=== PATIENT | male | born 1960 | race Caucasian/White ===

== ENCOUNTER → 2017-07-21 10:01 | Outpatient (CLI) | payer MEDICAID, SELFPAY ==
[2017-07-21 13:29] LABS: Basophils % 0.2 % (0.1-2.0); Eosinophils # 0.1 K/mm3 (0.0-0.4); Eosinophils % 0.5 % (0.1-12.0); Hematocrit 45.8 % (42.0-52.0); Hemoglobin 14.7 g/dL (14.1-18.0); Lymphocytes # 1.3 K/mm3 (0.7-4.5); Lymphocytes % 11.7 K/mm3 (10-50); Mean Corpuscular HGB Conc 32.2 g/dL (31.8-35.4); Mean Corpuscular Hemoglobin 32.6 pg (27.0-31.2); Mean Corpuscular Volume 101.2 fl (80-94); Mean Platelet Volume 8.1 fl (7.4-10.4); Monocytes # 0.9 K/mm3 (0.1-1.0); Monocytes % 8.5 % (1.7-9.3); Neutrophils # 8.6 K/mm3 (1.8-7.8); Neutrophils % 79.1 % (37.0-80.0); Platelet Count 170 K/mm3 (142-424); Red Blood Count 4.52 M/mm3 (4.60-6.20); Red Cell Distribution Width 12.8 % (11.5-17.5); White Blood Count 10.9 K/mm3 (4.8-10.8)
[2017-07-21 13:34] LABS: Anion Gap 14.9 mEq/L (5-15); Blood Urea Nitrogen 22 mg/dL (7-18); Carbon Dioxide 28 mmol/L (21.0-32.0); Chloride 97 mmol/L (98-107); Creatinine,Serum 0.88 mg/dL (0.70-1.30); Estimated Glomerular Filt Rate 90 ml/min (>60); GFR (African American) 108 ML/MIN (>60); Glucose 155 mg/dL (74-106); Potassium 4.9 mmoL/L (3.5-5.1); Sodium 135 mmol/L (136-145)
== END ==
PROVIDERS: Visit Provider Emergency Medicine
DX: E11.9 Type 2 diabetes mellitus without complications (principal); N28.9 Disorder of kidney and ureter, unspecified
CPT/HCPCS: 80048; 85025

== ENCOUNTER → 2017-08-21 06:38 | Outpatient (CLI) | payer MEDICAID, SELFPAY ==
--- NOTE | 2017-08-21 06:41 | CA_ITS ---
PROCEDURE: 2-D M-mode and color Doppler study INDICATIONS FOR THE TEST: Chest pain+ COPD Heart Murmur Tobacco Smoking Palpitations Fatigue Syncope Edema Hypertension+Diabetes Mellitus+ Rheumatic Fever SOB CAGE Obesity Hyperlipidemia+ Family History HD Additional History CAD PATIENT INFORMATION HEIGHT: 68 WEIGHT:191 GENDER: Male B/P:145/78 2-D/M-MODE INTERPRETATION: 2-D MEASUREMENTS OBSERVED VALUES IN CMS Right Ventricular Dimension (RVDd) 2.0 Interventricular Septum (Thickness)(IVsd) 1.1 Left Ventricular Internal Dimensions(LVIDd) 4.9 Left Ventricular Posterior Wall (Thickness)(LVPWd) 1.0 Aortic Root 2.7 Aortic Cusp Separation 2.2 Left Atrial Dimensions (LAD) 3.4 2D 1. Left atrium is mildly enlarged, left ventricle is normal size, mild concentric left ventricular hypertrophy, visually estimated ejection fraction 55% with no obvious regional wall motion abnormality. 2. The right atrium and right ventricle are mildly enlarged with normal contractility. 3. The aortic valve is minimally thickened and fibrosed. 4. The mitral and tricuspid valvular grossly normal. 5. The pulmonic valve is poorly visualized. 6. No significant pericardial effusion noted. DOPPLER INTERROGATION: Doppler interrogation of the aortic, mitral and tricuspid valvular presence of mild mitral and tricuspid regurgitation, tricuspid and jet velocity insufficient for calculation of the right ventricular systolic pressure, diastolic parameters are inconclusive. CONCLUSION: 1. Mild biatrial enlargement, normal left ventricular size, mild concentric left ventricular hypertrophy, visually estimated ejection fraction 55% with no obvious regional wall motion abnormality, diastolic parameters are inconclusive. 2. Mildly enlarged right ventricle with normal contractility. 3. Mild mitral and tricuspid regurgitation 4. No significant pericardial effusion noted.
--- NOTE | 2017-08-21 06:41 | NM_ITS ---
History and Indications: Hypertension, diabetes chest pain Procedure: Patient received a 0.4 mg of Lexiscan, resting heart rate was 64 bpm, resting blood pressure 130/78, with Lexiscan maximum heart rate achieved was 105 bpm is less than 85% of the maximum predicted heart rate and a blood pressure was 128/94. With Lexiscan patient complained of shortness of breath. Electrocardiogram: Resting electrocardiogram showed sinus rhythm, with Lexiscan there is less than 1.[address] segment depression noted from the baseline EKG. The EKG portion of the Lexiscan Myoview is nondiagnostic. Cardiac stress and resting SPECT images: Cardiac stress and rest SPECT images were obtained using technetium 99 Myoview 30.0 mCi at stress and 10 mci at rest, gated SPECT further analysis of segmental wall motion and calculation of the ejection fraction also done. Cardiac stress and rest SPECT images show uniform myocardial activity without any segmental perfusion abnormality, computer derived ejection fraction is 56% with no obvious regional wall motion abnormality, right ventricle is normal size and contractility. Conclusion: 1. The EKG portion of the Lexiscan Myoview is nondiagnostic. 2. No obvious scintigraphic evidence of reversible ischemia seen, computer derived ejection fraction is 56% with no obvious regional wall motion abnormality, right ventricle is normal size and contractility. 3. Normal Lexiscan Myoview study.
--- NOTE | 2017-08-21 07:19 | HMH.ITSHM ---
METFORMIN LISINOPRIL ASA PRAVASTATIN GABAPENTIN ACETAMINOPHEN MULTIVITAMIN ANTACID
== END ==
PROVIDERS: Family Provider Emergency Medicine; PCP Emergency Medicine; Visit Provider Internal Medicine
DX: R07.9 Chest pain, unspecified (principal); I25.10 Atherosclerotic heart disease of native coronary artery without angina pectoris; E78.5 Hyperlipidemia, unspecified; E11.9 Type 2 diabetes mellitus without complications; I10 Essential (primary) hypertension
CPT/HCPCS: 78452; 93017; 93306; A9502; J2785

== ENCOUNTER → 2017-08-29 16:01 | Outpatient (REF) | payer MEDICAID, SELFPAY ==
[2017-08-29 18:11] LABS: Anion Gap 13.2 mEq/L (5-15); Blood Urea Nitrogen 14 mg/dL (7-18); Calcium 9.2 mg/dL (8.5-10.1); Carbon Dioxide 27 mmol/L (21.0-32.0); Chloride 103 mmol/L (98-107); Creatinine,Serum 0.78 mg/dL (0.70-1.30); Estimated Glomerular Filt Rate 103 ml/min (>60); GFR (African American) 125 ML/MIN (>60); Glucose 134 mg/dL (74-106); Potassium 4.2 mmoL/L (3.5-5.1); Sodium 139 mmol/L (136-145)
== END ==
LOC: LAB 16:01
PROVIDERS: Visit Provider Emergency Medicine
DX: I25.10 Atherosclerotic heart disease of native coronary artery without angina pectoris (principal)
CPT/HCPCS: 80048

== ENCOUNTER → 2018-02-26 13:20 | Outpatient (CLI) | payer MEDICAID, SELFPAY ==
[2018-02-26 13:39] LABS: Basophils % 0.5 % (0.1-2.0); Eosinophils # 0.2 K/mm3 (0.0-0.4); Eosinophils % 4.2 % (0.1-12.0); Hematocrit 49.8 % (42.0-52.0); Hemoglobin 16.7 g/dL (14.1-18.0); Lymphocytes # 1.4 K/mm3 (0.7-4.5); Lymphocytes % 27.3 % (10-50); Mean Corpuscular HGB Conc 33.5 g/dL (31.8-35.4); Mean Corpuscular Hemoglobin 33.8 pg (27.0-31.2); Mean Corpuscular Volume 100.8 fl (80-94); Mean Platelet Volume 8.1 fl (7.4-10.4); Monocytes # 0.4 K/mm3 (0.1-1.0); Neutrophils # 3.2 K/mm3 (1.8-7.8); Platelet Count 174 K/mm3 (142-424); Red Blood Count 4.94 M/mm3 (4.60-6.20); Red Cell Distribution Width 12.2 % (11.5-17.5); White Blood Count 5.3 K/mm3 (4.8-10.8)
[2018-02-26 13:59] LABS: Alanine Aminotransferase 43 U/L (12-78); Albumin Level 4.3 gm/dL (3.4-5.0); Albumin/Globulin Ratio 1.3 (1.1-1.8); Alkaline Phosphatase 76 U/L (46-116); Anion Gap 17.5 mEq/L (5-15); Aspartate Amino Transferase 27 U/L (15-37); Blood Urea Nitrogen 16 mg/dL (7-18); Calcium 9.3 mg/dL (8.5-10.1); Carbon Dioxide 25 mmol/L (21.0-32.0); Chloride 101 mmol/L (98-107); Chol/HDL Ratio 3.8 (1-3.5); Cholesterol 211 mg/dL (140-200); Estimated Glomerular Filt Rate 87 ml/min (>60); GFR (African American) 105 ML/MIN (>60); Globulin 3.3 gm/dl (1.3-3.2); Glucose 152 mg/dL (74-106); HDL Cholesterol 55 mg/dL (27-67); LDL Cholesterol 130 mg/dL (0-130); Potassium 4.5 mmoL/L (3.5-5.1); Sodium 139 mmol/L (136-145); Thyroid Stimulating Hormone 1.07 uIU/ml (0.358-3.740); Total Protein,Serum 7.6 gm/dL (6.4-8.2); Triglycerides 132 mg/dL (30-200); VLDL Cholesterol 26 mg/dL (0-40)
[2018-02-26 14:00] LABS: Hemoglobin A1C 5.8 % (0.0-7.0)
[2018-02-27 14:00] LABS: PSA, Free 0.12 ng/mL; Prostate Specific Ag 0.9 ng/mL (0.0-4.0)
== END ==
PROVIDERS: Visit Provider Emergency Medicine
DX: E11.9 Type 2 diabetes mellitus without complications (principal)
CPT/HCPCS: 80053; 80061; 83036; 84153; 84154; 84439; 84443; 85025

== ENCOUNTER → 2018-03-06 14:15 | Outpatient (CLI) | payer MEDICAID, SELFPAY ==
[2018-03-09 17:07] LABS: Folate >20.0 ng/mL (>3.0); Vitamin B12 594 pg/mL (232-1245)
== END ==
PROVIDERS: Visit Provider Physician Assistant
DX: D75.89 Other specified diseases of blood and blood-forming organs (principal)
CPT/HCPCS: 36415; 82607; 82746

== ENCOUNTER → 2018-08-21 13:43 | Outpatient (CLI) | payer MEDICAID, SELFPAY ==
[2018-08-21 14:23] LABS: Alanine Aminotransferase 40 U/L (12-78); Albumin Level 4.1 gm/dL (3.4-5.0); Albumin/Globulin Ratio 1.5 (1.1-1.8); Alkaline Phosphatase 69 U/L (46-116); Anion Gap 12.7 mEq/L (5-15); Aspartate Amino Transferase 23 U/L (15-37); Bilirubin,Total 0.9 mg/dL (0.2-1.0); Blood Urea Nitrogen 14 mg/dL (7-18); Calcium 9.1 mg/dL (8.5-10.1); Carbon Dioxide 27 mmol/L (21.0-32.0); Chloride 104 mmol/L (98-107); Chol/HDL Ratio 2.9 (1-3.5); Cholesterol 144 mg/dL (140-200); Estimated Glomerular Filt Rate 100 ml/min (>60); GFR (African American) 121 ML/MIN (>60); Globulin 2.8 gm/dl (1.3-3.2); Glucose 127 mg/dL (74-106); HDL Cholesterol 49 mg/dL (27-67); LDL Cholesterol 86 mg/dL (0-130); Potassium 4.7 mmoL/L (3.5-5.1); Sodium 139 mmol/L (136-145); T4 (Thyroxine) 8.3 ug/dl (4.7-13.3); Thyroid Stimulating Hormone 0.98 uIU/ml (0.358-3.740); Total Protein,Serum 6.9 gm/dL (6.4-8.2); Triglycerides 44 mg/dL (30-200); VLDL Cholesterol 9 mg/dL (0-40)
[2018-08-21 14:42] LABS: Basophils % 0.4 % (0.1-2.0); Eosinophils # 0.2 K/mm3 (0.0-0.4); Eosinophils % 2.9 % (0.1-12.0); Hematocrit 48.9 % (42.0-52.0); Hemoglobin 15.8 g/dL (14.1-18.0); Lymphocytes # 1.8 K/mm3 (0.7-4.5); Lymphocytes % 32.6 % (10-50); Mean Corpuscular HGB Conc 32.3 g/dL (31.8-35.4); Mean Corpuscular Hemoglobin 33.2 pg (27.0-31.2); Mean Corpuscular Volume 102.9 fl (80-94); Mean Platelet Volume 8.7 fl (7.4-10.4); Monocytes # 0.3 K/mm3 (0.1-1.0); Monocytes % 5.8 % (1.7-9.3); Neutrophils # 3.3 K/mm3 (1.8-7.8); Neutrophils % 58.2 % (37.0-80.0); Platelet Count 183 K/mm3 (142-424); Red Blood Count 4.75 M/mm3 (4.60-6.20); Red Cell Distribution Width 12.6 % (11.5-17.5); White Blood Count 5.6 K/mm3 (4.8-10.8)
[2018-08-23 09:11] LABS: Creatinine, Urine 160.1 mg/dL (Not Estab.); Microalbumin, Urine 13.3 ug/mL (Not Estab.)
[2018-08-24 07:11] LABS: Vitamin D 25 Hydroxy 30.6 ng/mL (30.0-100.0)
== END ==
PROVIDERS: Visit Provider Emergency Medicine
DX: E11.9 Type 2 diabetes mellitus without complications (principal); R71.8 Other abnormality of red blood cells; E78.5 Hyperlipidemia, unspecified; Z79.84 Long term (current) use of oral hypoglycemic drugs
CPT/HCPCS: 80053; 80061; 82043; 82570; 82607; 82652; 82746; 83036; 84436; 84443; 85025

== ENCOUNTER → 2018-09-04 14:16 | Outpatient (CLI) | payer MEDICAID, SELFPAY ==
[2018-09-06 22:04] LABS: Vitamin B12 644 pg/mL (232-1245)
== END ==
PROVIDERS: Visit Provider Physician Assistant
DX: R71.8 Other abnormality of red blood cells (principal)
CPT/HCPCS: 36415; 82607; 82746

== ENCOUNTER → 2019-06-24 14:48 | Outpatient (CLI) | payer MEDICAID, SELFPAY ==
[2019-06-24 15:38] LABS: Chloride 104 mmol/L (98-107); Potassium 4.9 mmoL/L (3.5-5.1); Sodium 135 mmol/L (136-145)
[2019-06-24 15:40] LABS: Alanine Aminotransferase 31 U/L (12-78); Blood Urea Nitrogen 13 mg/dl (9-20); Estimated Glomerular Filt Rate 138 ml/min (>60); GFR (African American) 167 ML/MIN (>60)
[2019-06-24 15:41] LABS: Albumin Level 4.6 g/dl (3.5-5.0); Albumin/Globulin Ratio 1.8 (1.1-1.8); Alkaline Phosphatase 66 U/L (38-126); Anion Gap 14.9 mEq/L (5-15); Aspartate Amino Transferase 33 U/L (17-59); Bilirubin,Total 0.8 mg/dl (0.2-1.3); Calcium 9.8 mg/dl (8.4-10.2); Carbon Dioxide 21 mmol/L (22.0-30.0); Cholesterol 160 mg/dl (140-200); Globulin 2.6 g/dL (1.3-3.2); Glucose 132 mg/dl (74-100); Total Protein,Serum 7.2 g/dl (6.3-8.2); Triglycerides 111 mg/dl (30-150); VLDL Cholesterol 22 mg/dL (0-40)
[2019-06-24 15:42] LABS: Chol/HDL Ratio 2.8 (1-3.5); HDL Cholesterol 58 mg/dl (40-60)
[2019-06-24 15:52] LABS: Basophils # 0.1 K/mm3 (0-0.2); Basophils % 0.9 % (0.1-2.0); Eosinophils # 0.4 K/mm3 (0.0-0.4); Eosinophils % 6.8 % (0.1-12.0); Hematocrit 46.9 % (42.0-52.0); Hemoglobin 15.8 g/dL (14.1-18.0); Lymphocytes # 1.4 K/mm3 (0.7-4.5); Mean Corpuscular HGB Conc 33.7 g/dL (31.8-35.4); Mean Corpuscular Hemoglobin 33.1 pg (27.0-31.2); Mean Corpuscular Volume 98.2 fl (80-94); Mean Platelet Volume 10.2 fl (7.4-10.4); Monocytes # 0.4 K/mm3 (0.1-1.0); Monocytes % 6.2 % (1.7-9.3); Neutrophils # 3.8 K/mm3 (1.8-7.8); Neutrophils % 63.1 % (37.0-80.0); Platelet Count 169 K/mm3 (142-424); Red Blood Count 4.77 M/mm3 (4.60-6.20); Red Cell Distribution Width 12.3 % (11.5-17.5)
[2019-06-24 15:53] LABS: Direct LDL Cholesterol 103.83 mg/dL (100-129)
[2019-06-24 15:59] LABS: T4 (Thyroxine) 8.4 ug/dl (5.53-11.0)
[2019-06-24 16:13] LABS: Thyroid Stimulating Hormone 1.07 uIU/mL (0.465-4.68)
[2019-06-24 17:16] LABS: Hemoglobin A1C 5.8 % (4.0-6.0)
[2019-06-26 08:12] LABS: Creatinine, Urine 97.9 mg/dL (Not Estab.); Microalbumin, Urine 9.4 ug/mL (Not Estab.)
[2019-06-26 08:41] LABS: Vitamin D 25 Hydroxy 21.4 ng/mL (30.0-100.0)
== END ==
PROVIDERS: Visit Provider Emergency Medicine
DX: E11.9 Type 2 diabetes mellitus without complications (principal); Z79.84 Long term (current) use of oral hypoglycemic drugs
CPT/HCPCS: 80053; 80061; 82043; 82570; 82652; 83036; 84436; 84443; 85025

== ENCOUNTER 2019-10-25 12:14 | Emergency (ER) | payer MEDICAID, SELFPAY ==
[2019-10-25 12:15] VITALS: BP 129/89; PULSE 81; RESP 18; TEMP 37; O2SAT 98; BMI 27.6
[2019-10-25 12:27] VITALS: BMI 27.6
--- NOTE | 2019-10-25 12:28 | XR_ITS ---
PROCEDURE: XR SHOULDER LT MIN 2V CLINICAL INDICATION: DISLOCATED SHOULDER COMPARISON: CT CT ANGIO CHEST from 10/25/2019 FINDINGS: No obvious fracture or dislocation. There are hypertrophic changes of the acromioclavicular joint with superior elevation of the distal clavicle suggesting a grade 2 separation. There are osteoarthritic changes of the shoulder joint. The humeral head is not in good profile to exclude underlying nondisplaced fracture. IMPRESSION: 1. Grade 2 separation of the left AC joint. 2. Osteoarthritic change of the glenohumeral joint Dictated by: Adryan Paz MD 10/25/2019 14:26 Adryan Paz MD in [facility] 10/25/2019 14:26
--- NOTE | 2019-10-25 12:39 | CT_ITS ---
PROCEDURE: CT ANGIO CHEST CLINCIAL INDICATION: HIT BY COW COMPARISON: No exams were available for comparison TECHNIQUE: IV Contrast: 70ML OPTIRAY 350 Axial images obtained with sagittal and coronal reformats. All CT scans at the facility use one or more dose reduction, viz: automated exposure control, ma/kV adjustment per patient size (including targeted exams where dose is matched to indication, i.e. head), or iterative reconstruction technique. FINDINGS: HEART AND MEDIASTINAL STRUCTURES: Unremarkable other than mild aortic tortuosity. There is excellent vascular opacification and there is no CT evidence of pulmonary emboli. LUNGS AND PLEURAL SPACES: The lung gomez are well-expanded and appear clear of infiltrate and there is no evidence of pulmonary contusion. There is no pleural fluid and there is no pneumothorax. Is a calcified granuloma superior segment left BONY STRUCTURES: There are moderate multilevel degenerate changes of the thoracic spine. There is no acute acute compression fracture seen. There is a nondisplaced fracture of the left 6th rib posterior axillary line with a small butterfly fragment. UPPER ABDOMEN: Unremarkable. ADDITIONAL FINDINGS: There is a hypodense cystic appearing lesion right lobe of the thyroid gland measuring 1.6 x 1.9 by 2.2 cm. Suggest a follow-up nonemergent ultrasound examination of the thyroid. IMPRESSION: Nondisplaced fracture left 5th rib posteriorly, no associated pulmonary contusion or pneumothorax traumatic injury identified Dictated by: Dr. Ja Silva MD 10/25/2019 14:11 Dr. Ja Silva MD in [facility] 10/25/2019 14:11
--- NOTE | 2019-10-25 12:39 | CT_ITS ---
PROCEDURE: CT ABDOMEN PELVIS W CON CLINICAL INDICATION: Kicked by cow in back of left-sided chest COMPARISON: No exams were available for comparison TECHNIQUE: IV Contrast: 75ML OPTIRAY 350 Oral Contrast none given Axial images obtained with sagittal and coronal reformats. All CT scans at the facility use one or more dose reduction, viz: automated exposure control, ma/kV adjustment per patient size (including targeted exams where dose is matched to indication, i.e. head), or iterative reconstruction technique. FINDINGS: Lower thorax: The lower lung gomez are clear, there is no findings to suggest pulmonary contusion, there is no pleural fluid and there is no pneumothorax. ABDOMEN: Liver: No masses or biliary dilatation. Gallbladder: Nondistended. There are at least 2 gallstones seen. Pancreas: No masses or peripancreatic fluid collections. Spleen: unremarkable Adrenals: unremarkable Kidneys/ureters: The kidneys are normal in size and show symmetrical function both appearing normal with no evidence of traumatic injury. ABDOMEN & PELVIS: Stomach bowel: There is a small sliding hiatal hernia. The stomach and duodenal sweep appear normal. The small bowel appears normal. There is scattered stool and gas seen throughout the colon. Peritoneum: No abnormal fluid collections. There is a tiny umbilical hernia containing fat only.. Lymph nodes: No enlarged lymph nodes apparent. Vasculature: There is minimal scattered arteriosclerotic calcification of the aorta but is there no evidence of aneurysm. Bones: Multilevel moderate degenerate changes lower thoracic and lumbar spine. There is no acute compression fracture seen PELVIS: Reproductive: unremarkable Bladder: The bladder is moderately distended with urine and appears normal, the prostate is slightly enlarged. Appendix: Not definitely identified but there are no findings to suggest appendicitis. IMPRESSION: Findings as described, no acute traumatic abdominal or pelvic pathology identified Dictated by: Dr. aJ Silva MD 10/25/2019 13:55 Dr. Ja Silva MD in [facility] 10/25/2019 13:55
[2019-10-25 12:45] VITALS: BP 113/68; PULSE 85; RESP 14; O2SAT 96
[2019-10-25 12:48] LABS: Basophils % 0.4 % (0.1-2.0); Eosinophils # 0.1 K/mm3 (0.0-0.4); Eosinophils % 1.6 % (0.1-12.0); Hematocrit 45.6 % (42.0-52.0); Lymphocytes # 1.4 K/mm3 (0.7-4.5); Lymphocytes % 16.7 % (10-50); Mean Corpuscular HGB Conc 35.1 g/dL (31.8-35.4); Mean Corpuscular Hemoglobin 35.5 pg (27.0-31.2); Mean Corpuscular Volume 100.9 fl (80-94); Mean Platelet Volume 8.4 fl (7.4-10.4); Monocytes # 0.4 K/mm3 (0.1-1.0); Monocytes % 5.3 % (1.7-9.3); Neutrophils # 6.3 K/mm3 (1.8-7.8); Platelet Count 228 K/mm3 (142-424); Red Blood Count 4.52 M/mm3 (4.60-6.20); White Blood Count 8.3 K/mm3 (4.8-10.8)
--- NOTE | 2019-10-25 12:49 | HMH.EDGENADL ---
ED Disposition Clinical Impression: Thyroid nodule Dislocation, shoulder closed Qualifiers: Encounter type: initial encounter Laterality: left Qualified Code(s): S43.005A - Unspecified dislocation of left shoulder joint, initial encounter Acromioclavicular joint separation, type 3 Qualifiers: Encounter type: subsequent encounter Laterality: left Qualified Code(s): S43.102D - Unspecified dislocation of left acromioclavicular joint, subsequent encounter Disposition: Home, Self-Care Condition on Discharge: Good Additional Instructions: You were seen on an emergency basis. It is very important that you follow up with your primary care provider and/or specialist as we discussed within 2 days. All labs and imaging were obtained and interpreted here to rule out life threatening emergencies, but your final results should be reviewed by your primary doctor at your follow up appointment. Please return to the emergency department if any of your symptoms worsen, or if they do not improve as we discussed. Referrals: PCP,No [Non-Staff] - - Critical Care Critical Care Time: No Attestation: On 10/25/19, the high probability of a clinically significant, sudden or life threatening deterioration of the following system(s) required my full and direct attention, intervention and personal management. The time I documented below is in addition to time spent performing reported procedures but includes the following listed in this critical care notation. Medical Decision Making - Medical Records Medical records reviewed: Yes: I reviewed the patient's medical records. - Ward Inquiry Pt receiving controlled substance: No Vital Signs: 10/25/19 12:15 10/25/19 12:45 10/25/19 14:25 Temperature 98.6 F Temperature Source Oral Pulse Rate [Left Radial] 81 85 73 Respiratory Rate 18 14 Blood Pressure [Right Arm] 129/89 113/68 107/64 L Blood Pressure Mean [Right Arm] 102 83 78 Blood Pressure Source [Right Arm] Automatic Cuff Automatic Cuff Blood Pressure Position [Right Arm] Sitting Sitting Sitting 02 Sat by Pulse Oximetry 98 96 96 Oxygen Delivery Method Room Air Room Air 10/25/19 14:30 Temperature Temperature Source Pulse Rate [Left Radial] 72 Respiratory Rate 20 Blood Pressure [Right Arm] 121/80 Blood Pressure Mean [Right Arm] 93 Blood Pressure Source [Right Arm] Automatic Cuff Blood Pressure Position [Right Arm] Sitting 02 Sat by Pulse Oximetry 96 Oxygen Delivery Method Nasal Cannula - Lab Data Lab results reviewed: Yes: I reviewed the patient's lab results. Lab Results 10/25/19 12:34: WBC 8.3, RBC 4.52 L, Hgb 16.0, Hct 45.6, MCV 100.9 H, MCH 35.5 H, MCHC 35.1, RDW 13.0, Plt Count 228, MPV 8.4, Neut % (Auto) 76.0, Lymph % (Auto) 16.7, Marshall % (Auto) 5.3, Eos % (Auto) 1.6, Baso % (Auto) 0.4, Neut # (Auto) 6.3, Lymph # (Auto) 1.4, Marshall # (Auto) 0.4, Eos # (Auto) 0.1, Baso # (Auto) 0.0 10/25/19 12:34: Sodium 140, Potassium 4.2, Chloride 106, Carbon Dioxide 24, Anion Gap 14.2, BUN 14, Creatinine 0.90, Estimated Creat Clear 104, Estimated GFR 87, Est GFR ( Amer) 105, Glucose 226 H, Calcium 9.7, Total Bilirubin 1.3, AST 64 H, ALT 52, Alkaline Phosphatase 82, Total Protein 7.5, Albumin 4.7, Globulin 2.8, Albumin/Globulin Ratio 1.7 Result diagrams: 10/25/19 12:34 10/25/19 12:34 Orders (Tests/Meds): ED MEDICATIONS Discontinued Medications Generic Name Dose Route Start Last Admin Trade Name Billyq PRN Reason Stop Dose Admin Fentanyl Citrate 50 mcg 10/25/19 12:35 10/25/19 12:36 Fentanyl 250mcg/5ml Vial IV 10/25/19 12:36 50 mcg ONCE ONE Administration Fentanyl Citrate 50 mcg 10/25/19 15:09 Fentanyl 250mcg/5ml Vial IV 10/25/19 15:10 ONCE ONE Ioversol 100 ml 10/25/19 13:34 10/25/19 13:36 Rad-Optiray 350 100ml Vial IV 10/25/19 13:35 100 ml ONCE ONE Administration Protocol Sodium Chloride 10 ml 10/25/19 13:34 10/25/19 13:36 Rad-Saline Flush 10ml Syringe IV
[2019-10-25 13:00] LABS: Alanine Aminotransferase 52 U/L (12-78); Albumin Level 4.7 g/dl (3.5-5.0); Albumin/Globulin Ratio 1.7 (1.1-1.8); Alkaline Phosphatase 82 U/L (38-126); Anion Gap 14.2 mEq/L (5-15); Aspartate Amino Transferase 64 U/L (17-59); Bilirubin,Total 1.3 mg/dl (0.2-1.3); Blood Urea Nitrogen 14 mg/dl (9-20); Calcium 9.7 mg/dl (8.4-10.2); Carbon Dioxide 24 mmol/L (22.0-30.0); Chloride 106 mmol/L (98-107); Creatinine Clearance Estimated 104 mL/min (50-200); Estimated Glomerular Filt Rate 87 ml/min (>60); GFR (African American) 105 ML/MIN (>60); Globulin 2.8 g/dL (1.3-3.2); Glucose 226 mg/dl (74-100); Potassium 4.2 mmoL/L (3.5-5.1); Sodium 140 mmol/L (136-145); Total Protein,Serum 7.5 g/dl (6.3-8.2)
[2019-10-25 14:25] VITALS: BP 107/64; PULSE 73; O2SAT 96
[2019-10-25 14:30] VITALS: BP 121/80; PULSE 72; RESP 20; O2SAT 96
--- NOTE | 2019-10-25 14:41 | PC.NURSE ---
Awaiting return phone call from
--- NOTE | 2019-10-25 14:56 | PC.NURSE ---
PT REQUEST TO SIT ON SIDE OF BED FAMILY AT BEDSIDE
[2019-10-25 15:30] VITALS: BP 115/84; PULSE 65; RESP 20; O2SAT 98
[2019-10-25 16:03] VITALS: BP 126/71; PULSE 65; RESP 19; TEMP 37; O2SAT 96
== END 2019-10-25 16:28 | disposition home or self-care (01) ==
PROVIDERS: Emergency Provider Physician Assistant; PCP Emergency Medicine
DX: S43.102A Unspecified dislocation of left acromioclavicular joint, initial encounter (principal); E04.1 Nontoxic single thyroid nodule; E11.9 Type 2 diabetes mellitus without complications; I10 Essential (primary) hypertension; E78.5 Hyperlipidemia, unspecified; W55.22XA Struck by cow, initial encounter; Y92.79 Other farm location as the place of occurrence of the external cause; Y99.0 Civilian activity done for income or pay
CPT/HCPCS: 23545; 71275; 73030; 74177; 80053; 85025; 96374; 96376; 99284; Q9967

== ENCOUNTER → 2019-10-29 09:30 | Outpatient (CLI) | payer MEDICAID, SELFPAY ==
--- NOTE | 2019-10-29 09:36 | XR_ITS ---
PROCEDURE: XR SHOULDER LT MIN 2V CLINICAL INDICATION: shoulder injury Dramatic pain COMPARISON: No exams were available for comparison FINDINGS: There is superior dislocation of the clavicle at the AC joint indicating at least a grade 2 separation and possibly grade 3 separation. This appears somewhat worse compared to 10/25/2019. Mild osteoarthritic changes are present at the glenohumeral joint. IMPRESSION: Grade 2 and possibly grade 3 left AC separation Dictated by: Adryan Paz MD 10/29/2019 09:53 Adryan Paz MD in [place] 10/29/2019 09:53
== END ==
PROVIDERS: PCP Emergency Medicine; Visit Provider Orthopaedic Surgery
DX: S43.006A Unspecified dislocation of unspecified shoulder joint, initial encounter (principal); S43.109A Unspecified dislocation of unspecified acromioclavicular joint, initial encounter
CPT/HCPCS: 73030

== ENCOUNTER → 2019-11-18 12:18 | Outpatient (CLI) | payer MEDICAID, SELFPAY ==
--- NOTE | 2019-11-18 12:37 | XR_ITS ---
PROCEDURE: XR AC JOINT LT CLINICAL INDICATION: left ac joint Left shoulder pain COMPARISON: CR XR SHOULDER LT MIN 2V from 10/29/2019 FINDINGS: There is grade 3 separation of the left AC joint and coracoclavicular joint. No obvious fracture apparent. There is prominence of the AC and coracoclavicular joint space. The AC joint space is widened and increases with weights. The coracoid clavicular joint spaces widened but does not significantly change with weights. IMPRESSION: Grade 3 left AC separation Dictated by: Adryan Paz MD 11/18/2019 14:33 Adryan Paz MD in [facility] 11/18/2019 14:33
== END ==
PROVIDERS: PCP Emergency Medicine; Visit Provider Orthopaedic Surgery
DX: S43.102A Unspecified dislocation of left acromioclavicular joint, initial encounter (principal)
CPT/HCPCS: 73050

== ENCOUNTER → 2019-11-21 12:40 | Outpatient (CLI) | payer MEDICAID, SELFPAY ==
--- NOTE | 2019-11-21 12:41 | US_ITS ---
PROCEDURE: US THYROID CLINICAL INDICATION: nodule Thyroid nodule evaluation COMPARISON: CT CT ANGIO CHEST from 10/25/2019 FINDINGS: Right lobe: 2.2cm x 4.3cm x 3.2cm Left lobe: 1.7cm x 4.1cm x 2.3cm Isthmus: Unremarkable Additional findings: There is a lobulated 2.2 x 1.6 cm cystic lesion of the right lobe of the thyroid gland. On the left, there is a 1.3 by 1.3 cm isoechoic nodule with some hyperechogenicity medially. This appears to have some rim like calcification. Calcification does appear thin. T rads level 4 moderately suspicious. Less than 1.5 cm. Recommend six-month follow-up. IMPRESSION: 1. Benign-appearing cystic lesion of the right lobe of the thyroid gland. 2. T rads level 4 nodule on the left less than 1.5 cm. Recommend six-month follow-up Dictated by: Adryan Paz MD 11/24/2019 09:29 Adryan Paz MD in [place] 11/24/2019 09:29
== END ==
PROVIDERS: PCP Emergency Medicine; Visit Provider Emergency Medicine
DX: E04.1 Nontoxic single thyroid nodule (principal)
CPT/HCPCS: 76536

== ENCOUNTER → 2019-12-19 09:46 | Outpatient (CLI) | payer MEDICAID, SELFPAY ==
--- NOTE | 2019-12-19 09:50 | XR_ITS ---
PROCEDURE: XR AC JOINT LT CLINICAL INDICATION: LT shoulder F/U Follow-up AC separation COMPARISON: CR XR AC JOINT LT from 11/18/2019 FINDINGS: AP views are performed of the AC joints without and with weights. There remains AC separation on the left with acromioclavicular and coracoclavicular separation. The joint space appears slightly wider on today's exam suggesting worsening AC separation. There are hypertrophic changes at the distal aspect of the clavicle on both sides IMPRESSION: Grade 3 left acromioclavicular separation which appears slightly worse Dictated by: Adryan Paz MD 12/19/2019 13:37 Adryan Paz MD in [facility] 12/19/2019 13:37
== END ==
PROVIDERS: PCP Emergency Medicine; Visit Provider Orthopaedic Surgery
DX: S43.002A Unspecified subluxation of left shoulder joint, initial encounter (principal)
CPT/HCPCS: 73050

== ENCOUNTER 2020-02-06 09:30 | Outpatient (RCR) | payer MEDICAID, SELFPAY ==
--- NOTE | 2019-11-04 09:17 | HMH.PTOPEV ---
PT Outpatient Evaluation Rehab PT Outpatient Evaluation Start: 11/04/19 08:33 Freq: Status: Active Protocol: Document 11/04/19 09:07 CARLOS (Rec: 11/04/19 09:17 CARLOS [id number]) Electronically Signed By Edward Jacobsen, PT 11/04/19 09:07 Outpatient Therapy Subjective History Subjective History Pt is 58 yowm who presents ~ 10 days S/P L shld dislocation with grade III AC jt separation after being run over by a cow. He had closed reduction on the GH dislocation in the ED the day of injury. Radiographs showed no fxs after reduction. He reports continued pain and stiffness as expected. 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 Chief Complaint Pain,Stiff Symptom Type Ache Symptoms Relieved By Rest/Positioning Symptoms Aggravated By Physical Activity,Lifting Prior Functional Limitations None Current Functional Limitations Reaching,Lifting,Driving, Sleeping,Recreation Activity Symptom Description Constant but Variable Level of pain today (0-10) 5 Pain scale - at its worst (0-10) 10 Shoulder/Elbow Eval Shoulder Objective Measurements Palpation Tenderness tenderness shoulder exam standard left Shoulder Palpation Findings Tenderness Shoulder Palpation Overall Comment significant AC separation obvious Shoulder ROM Left Shoulder ROM Limitations Pain Shoulder Abduction Active Range of 0-105 Motion (degrees) Shoulder Abduction Passive Range of 0-140 Motion (degrees) Shoulder Flexion Active Range of Motion 0-110 (degrees) Query Text: Shoulder Flexion Passive Range of Motion 0-140 (degrees) Shoulder MMT Anterior Deltoid Strength Grade 4 Good Upper Trapezius/Levator Scapulae 4 Good Shoulder Abduction Strength Grade 4 Good Shoulder Flexion Strength Grade 4 Good Shoulder External Rotation Strength 4 Good Grade Middle Deltoid Strength Strength Grade 4 Good Shoulder Internal Rotation Strength 4 Good Grade Elbow Objective Measurements Outpatient Therapy Assessment Impairments Problems/Impairmments Palpation Tenderness,Impaired Range of Motion,Impaired Strength,Impaired Endurance, Im
--- NOTE | 2019-12-10 10:01 | HMH.RHREAS ---
Rehab Reassessment Rehab OP Re-assessment Start: 12/10/19 09:54 Freq: Status: Active Protocol: Document 12/10/19 09:58 CALROS (Rec: 12/10/19 10:01 CARLOS [id number]) Electronically Signed By Edward Jacobsen, PT 12/10/19 09:58 Rehab Re-assessment Subjective Subjective Pt reports 2/10 pain in L shld at rest this am. Objective Objective Notes L shld AROM: Flex= 0-160 deg, ABD= 0-140 deg. MMT L Shld: Grossly 4+/5 all dir. Assessment Progress Assessment Progressing as Expected Assessment Notes Pt with much improved AROM of L shld, strength improved as well, but needs to improve more. Patient goals met ST,2,3,4,5,6 Goals Not Met LT,2,3,4,5,6 Revised Goals none Plan Plan Continue per initial POC. Frequency of Therapy 2 x/wk Duration of therapy 8 wks Time and Billing Re-Eval Time 15 Re-Eval Billing Units 1 PHYSICIAN CERTIFICATION: I certify the specified therapy services for Rich Hansen are required, authorized, and reviewed every 30 days.
== END 2020-02-06 09:35 | disposition home or self-care (01) ==
LOC: PT 09:30
PROVIDERS: PCP Emergency Medicine; Visit Provider Orthopaedic Surgery
DX: S43.102D Unspecified dislocation of left acromioclavicular joint, subsequent encounter; S43.005A Unspecified dislocation of left shoulder joint, initial encounter
CPT/HCPCS: 97010; 97014; 97035; 97110; 97140; 97163; 97164; G0283

== ENCOUNTER → 2020-03-16 11:37 | Outpatient (CLI) | payer MEDICAID, SELFPAY ==
--- NOTE | 2020-03-16 11:42 | XR_ITS ---
PROCEDURE: XR AC JOINT LT CLINICAL INDICATION: LT shoulder FU COMPARISON: CR XR AC JOINT LT from 12/19/2019 FINDINGS: There is widening of the left acromioclavicular and coracoclavicular joint space consistent with grade 3 AC separation. This is not significantly changed. Osteoarthritic changes are present involving the right AC joint. The sternoclavicular joint space is unremarkable. IMPRESSION: No change grade 3 left AC separation Dictated by: Adryan Paz MD 03/16/2020 18:07 Adryan Paz MD in [facility] 03/16/2020 18:07
== END ==
PROVIDERS: PCP Emergency Medicine; Visit Provider Orthopaedic Surgery
DX: S43.102A Unspecified dislocation of left acromioclavicular joint, initial encounter (principal); S43.002A Unspecified subluxation of left shoulder joint, initial encounter
CPT/HCPCS: 73050

== ENCOUNTER → 2020-04-08 13:36 | Outpatient (CLI) | payer MEDICAID, SELFPAY ==
[2020-04-08 14:24] LABS: Basophils % 0.6 % (0.1-2.0); Eosinophils # 0.2 K/mm3 (0.0-0.4); Eosinophils % 3.3 % (0.1-12.0); Hematocrit 49.4 % (42.0-52.0); Hemoglobin 16.3 g/dL (14.1-18.0); Lymphocytes # 1.6 K/mm3 (0.7-4.5); Lymphocytes % 28.1 % (10-50); Mean Corpuscular HGB Conc 33.1 g/dL (31.8-35.4); Mean Corpuscular Hemoglobin 33.5 pg (27.0-31.2); Mean Corpuscular Volume 101.1 fl (80-94); Mean Platelet Volume 8.4 fl (7.4-10.4); Monocytes # 0.3 K/mm3 (0.1-1.0); Monocytes % 5.6 % (1.7-9.3); Neutrophils # 3.5 K/mm3 (1.8-7.8); Neutrophils % 62.4 % (37.0-80.0); Platelet Count 173 K/mm3 (142-424); Red Blood Count 4.88 M/mm3 (4.60-6.20); Red Cell Distribution Width 12.6 % (11.5-17.5); White Blood Count 5.7 K/mm3 (4.8-10.8)
[2020-04-08 14:45] LABS: Alanine Aminotransferase 26 U/L (12-78); Albumin Level 4.9 g/dl (3.5-5.0); Albumin/Globulin Ratio 1.6 (1.1-1.8); Alkaline Phosphatase 78 U/L (38-126); Anion Gap 14.7 mEq/L (5-15); Aspartate Amino Transferase 34 U/L (17-59); Bilirubin,Total 0.9 mg/dl (0.2-1.3); Blood Urea Nitrogen 12 mg/dl (9-20); Calcium 10.3 mg/dl (8.4-10.2); Carbon Dioxide 26 mmol/L (22.0-30.0); Chloride 104 mmol/L (98-107); Chol/HDL Ratio 3.5 (1-3.5); Cholesterol 187 mg/dl (140-200); Estimated Glomerular Filt Rate 115 ml/min (>60); GFR (African American) 140 ML/MIN (>60); Globulin 3.1 g/dL (1.3-3.2); Glucose 131 mg/dl (74-100); HDL Cholesterol 54 mg/dl (40-60); Potassium 4.7 mmoL/L (3.5-5.1); Sodium 140 mmol/L (136-145); Triglycerides 121 mg/dl (30-150); VLDL Cholesterol 24 mg/dL (0-40)
[2020-04-08 14:56] LABS: Direct LDL Cholesterol 104.06 mg/dL (100-129)
[2020-04-08 15:03] LABS: Free T4 (Free Thyroxine) 1.17 ng/dl (0.78-2.19)
[2020-04-08 15:16] LABS: Prostate Specific Ag Screen 0.6 ng/ml (0.0-4.0)
[2020-04-08 15:57] LABS: Microalbumin/Creatinine Ratio 10.8
[2020-04-08 16:09] LABS: Creatinine,Urine Random 80 mg/dL (Not Estab.); Hemoglobin A1C 6.2 % (4.0-6.0)
== END ==
PROVIDERS: Visit Provider Emergency Medicine
DX: E11.9 Type 2 diabetes mellitus without complications (principal); N28.9 Disorder of kidney and ureter, unspecified; E66.9 Obesity, unspecified; Z68.30 Body mass index [BMI] 30.0-30.9, adult; Z12.5 Encounter for screening for malignant neoplasm of prostate; Z79.84 Long term (current) use of oral hypoglycemic drugs
CPT/HCPCS: 80053; 80061; 82043; 82570; 83036; 84439; 84443; 85025; G0103

== ENCOUNTER → 2020-06-10 12:50 | Outpatient (CLI) | payer MEDICAID, SELFPAY ==
--- NOTE | 2020-06-10 12:50 | US_ITS ---
PROCEDURE: US THYROID CLINICAL INDICATION: 6 mth f/u nodules Thyroid nodule follow up there is a 17 x 15 mm semi-solid nodule involving the right lobe superiorly. This was larger on the previous exam measuring 22 x 16 mm however there is now solid component. COMPARISON: US US THYROID from 11/21/2019 FINDINGS: Right lobe: 2.1cm x 4.4cm x 2.9cm. There is a 17 x 15 mm semi solid nodule involving the right lobe superiorly. This previously measured 22 x 16 mm however, solid component is developing along its lower margin with some irregularity of the wall centrally. Left lobe: 1.4cm x 4.1cm x 2.2cm. A 8 mm nodules present in the lower pole with peripheral rim like calcification unchanged.. An additional nodule is present along the lower pole which measures 5 mm not significantly changed. This nodule is isoechoic. Isthmus: Unremarkable Additional findings: IMPRESSION: Dominant nodule in the right lobe of the thyroid gland is slightly smaller however, there is now solid component with some irregularity medially. Suggest ultrasound-guided fine needle aspiration for further evaluation Dictated by: Adryan Paz MD 06/12/2020 09:20 Adryan Paz MD in [facility] 06/12/2020 09:20
== END ==
PROVIDERS: PCP Emergency Medicine; Visit Provider Emergency Medicine
DX: E04.1 Nontoxic single thyroid nodule (principal)
CPT/HCPCS: 76536

== ENCOUNTER → 2020-07-09 09:24 | Outpatient (CLI) | payer MEDICAID, SELFPAY ==
--- NOTE | 2020-07-09 09:29 | US_ITS ---
PROCEDURE: US FNA THYROID CLINICAL INDICATION: Dominant thyroid nodule COMPARISON: US US THYROID from 06/10/2020 TECHNIQUE: Following obtaining informed consent and time-out procedure, using aseptic technique and local anesthesia with buffered lidocaine, fine-needle aspiration was performed of the nodule of interest using sonographic guidance. 3 passes were made into the nodule with a 21 gauge needle. Specimen was given to cytology. The patient tolerated the procedure well without evidence of immediate complications and left the ultrasound suite in stable condition. FINDINGS: CYTOLOGY: Negative for malignant cells. Please see cytology report IMPRESSION: Uneventful ultrasound-guided FNA of right thyroid nodule. Negative for malignant cells. Please see cytology report. Suggest follow-up ultrasound in 6 months to confirm continued stability Dictated by: Adryan Paz MD 07/13/2020 10:26 Adryan Paz MD in [facility] 07/13/2020 10:26
== END ==
PROVIDERS: PCP Emergency Medicine; Visit Provider Emergency Medicine
DX: E04.1 Nontoxic single thyroid nodule (principal)
CPT/HCPCS: 10005; 76536

== ENCOUNTER → 2021-01-06 13:27 | Outpatient (CLI) | payer MEDICAID, SELFPAY ==
--- NOTE | 2021-01-06 13:27 | US_ITS ---
PROCEDURE: US THYROID CLINICAL INDICATION: right thryoid nodule FNA COMPARISON: US US THYROID from 06/10/2020 FINDINGS: Right lobe: 4.2 x 1.7 x 2.2 cm. Hypoechoic nodule once again noted in the mid aspect of the right lobe measuring 6 by 6 mm previously 1.5 by 1.7 cm. This nodule was biopsied with FNA on 07/09/2020. 3 mm hypoechoic nodule lower pole Left lobe: 4.4 x 1.7 x 1.7 cm. Hypoechoic 7 x 6 mm nodule in the lower pole with peripheral thin rim of calcification. Not significantly changed. Isthmus: Mildly thickened at 5 mm Additional findings: IMPRESSION: Hypoechoic nodule in the right lobe smaller compared to the previous exam. Peripherally calcified nodule in the left lobe unchanged. Annual follow-up recommended. Dictated by: Adryan Paz MD 01/07/2021 07:55 Adryan Paz MD in [place] 01/07/2021 07:55
== END ==
PROVIDERS: PCP Emergency Medicine; Visit Provider Emergency Medicine
DX: E04.1 Nontoxic single thyroid nodule (principal)
CPT/HCPCS: 76536

== ENCOUNTER → 2021-08-06 07:57 | Outpatient (CLI) | payer MEDICAID, SELFPAY ==
--- NOTE | 2021-08-06 08:00 | XR_ITS ---
FINAL REPORT CLINICAL HISTORY: knee pain, pt says it has been worsening over the last year, no known injuries FINDINGS: 4 views of the right knee were obtained. There is no acute fracture or dislocation. There are degenerative changes ranging from mild to severe. There is significant narrowing of the medial compartment joint space. There is mild vascular calcification. IMPRESSION: Degenerative changes ranging from mild to severe, greatest in the lateral compartment. Reviewed, Interpreted and Dictated by Juan Zamora III, MD Transcribed by Nehemiah Masterson Authenticated and [facility]
--- NOTE | 2021-08-06 08:00 | XR_ITS ---
FINAL REPORT CLINICAL HISTORY: knee pain, pt says it has been worsening over the last year, no known injuries FINDINGS: 4 views of the left knee were obtained. There is no acute fracture or dislocation. There are mild and moderate degenerative changes. There is significant narrowing of the medial compartment joint space. The soft tissues are unremarkable. IMPRESSION: Mild and moderate degenerative changes, greatest in the medial compartment. Reviewed, Interpreted and Dictated by Juan Zamora III, MD Transcribed by Nehemiah Masterson Authenticated and [facility]
== END ==
PROVIDERS: PCP Emergency Medicine; Visit Provider Emergency Medicine
DX: M25.562 Pain in left knee (principal); M25.561 Pain in right knee
CPT/HCPCS: 73564

== ENCOUNTER 2021-08-20 13:53 | Outpatient (RCR) | payer MEDICAID, SELFPAY | END 2021-08-20 15:00 | disposition home or self-care (01) | LOC: PT 13:53 | PROVIDERS: Visit Provider Orthopaedic Surgery | DX: M25.562 Pain in left knee (principal); M25.561 Pain in right knee | CPT/HCPCS: 97760 ==

== ENCOUNTER 2021-10-11 08:00 | Outpatient (RCR) | payer MEDICAID, SELFPAY | END 2021-10-11 08:05 | disposition home or self-care (01) | LOC: PT 08:00 | PROVIDERS: PCP Emergency Medicine; Visit Provider Orthopaedic Surgery | DX: M25.562 Pain in left knee (principal); M25.561 Pain in right knee | CPT/HCPCS: 97110; 97112; 97163; 97164; 97530 ==

== ENCOUNTER → 2021-10-20 06:18 | Outpatient (CLI) | payer MEDICAID, SELFPAY ==
[2021-10-20 16:09] LABS: Chol/HDL Ratio 3.4 (1-3.5); Cholesterol 166 mg/dl (140-200); HDL Cholesterol 49 mg/dl (40-60); Triglycerides 105 mg/dl (30-150); VLDL Cholesterol 21 mg/dL (0-40)
[2021-10-20 16:45] LABS: Hemoglobin A1C 6.1 % (4.0-6.0)
[2021-10-23 08:26] LABS: Direct LDL Cholesterol 92 mg/dL (100-129)
== END ==
PROVIDERS: PCP Emergency Medicine; Visit Provider Emergency Medicine
DX: E11.9 Type 2 diabetes mellitus without complications (principal); E78.5 Hyperlipidemia, unspecified; Z79.84 Long term (current) use of oral hypoglycemic drugs
CPT/HCPCS: 80061; 83036

== ENCOUNTER 2022-03-15 10:07 | Day surgery (SDC) | payer MEDICAID, SELFPAY ==
[2022-03-11 13:46] VITALS: BMI 28.5
[2022-03-15 10:27] VITALS: BP 142/75; PULSE 71; RESP 18; TEMP 36.9; O2SAT 97
[2022-03-15 10:41] LABS: POC Glucose,Bedside 111 (70-110)
--- NOTE | 2022-03-15 10:45 | EXP.ANES.CKL ---
[facility] Disclaimer: The information contained in this section may have been updated after the patient was seen, as this information can be updated by other users. Medical History Allergies Arthritis CAD (coronary artery disease) Diabetes mellitus, type 2 History of cataract History of gastroesophageal reflux (GERD) HLD (hyperlipidemia) Hyperlipidemia Hypertension Sinus bradycardia Sinus headache Sleep apnea Ulcerative colitis Surgical History No significant past surgical history Family History Other Diabetes Heart disease Social History Smoking Status: Never smoker alcohol intake: never substance use type: denies use current occupational status: employed Travel in the last 8 weeks: None household members: none housing: house caffeine: Yes [facility] Anesthesia Checklist Patient Identification Patient Identification: Arm Band Structural Data Admitted From: Home Planned Operative Procedure/s: colonoscopy Consent for Planned Operative Procedure(s) Verified: Yes Verified Documents: Surgical Consent and History and Physical NPO Status Verified Time NPO: 00:00 Additional verifications Anesthesia Reactions: No Airway Assessment C-Spine Mobility Assessed: Yes TMJ Mobility Assessed: Yes Dentition: Poor Dentition Neurological Assessment Level of Consciousness: Awake and Alert Anesthesia Plan Anesthesia Plan: Verified ASA Class: II Anesthesia Type: MAC
[2022-03-15 11:57] VITALS: O2SAT 95
--- NOTE | 2022-03-15 12:17 | P.PCN_ITS ---
Procedure: Date: 03/15/22 Patient Date of :: 1960 Procedure Performed:: Colonoscopy Indications:: Screening Performing Provider:: Teddy Brock MD Referring Provider:: . Sedation:: Monitored anesthesia care Procedure:: After informed consent was obtained the patient was taken to the endoscopy suite. Sedation ensued after the patient was transferred to the left lateral decubitus position. Pulse, blood pressure, and oxygen saturation were monitored throughout the procedure. Digital rectal exam revealed no significant abnormality. The colonoscope was placed in position. The entire colon was eval uated. The colonoscope was carefully removed and the patient was transferred to recovery in stable condition. Please see findings and specimens below for detail. Findings:: Bowel preparation relatively poor Significant spasticity/tortuosity Specimens:: None Recommendations:: Repeat colonoscopy approximately 1 year with extended bowel preparation Complications:: Limited visualization secondary to relatively poor bowel preparation Estimated blood obtained (mL): 0
[2022-03-15 12:27] VITALS: BP 97/52; PULSE 77; RESP 14; TEMP 36.8; O2SAT 94
[2022-03-15 12:30] VITALS: BP 95/58; PULSE 80; RESP 17; TEMP 36.8; O2SAT 93
[2022-03-15 12:38] VITALS: BP 101/60; PULSE 67; RESP 18; O2SAT 94
[2022-03-15 12:55] VITALS: BP 127/68; PULSE 75; RESP 17; O2SAT 96
== END 2022-03-15 12:56 | disposition home or self-care (01) ==
PROVIDERS: PCP Emergency Medicine; Visit Provider Surgery
PROC: 0DJD8ZZ Inspection of Lower Intestinal Tract, Via Natural or Artificial Opening Endoscopic (ICD-10-PCS; CPT 45378; principal; 2022-03-15 11:30)
DX: Z12.11 Encounter for screening for malignant neoplasm of colon (principal); Z86.010 Personal history of colon polyps; Z79.899 Other long term (current) drug therapy; E11.9 Type 2 diabetes mellitus without complications
CPT/HCPCS: 45378; 82962

== ENCOUNTER 2022-06-02 15:10 | Emergency (ER) | payer MEDICAID, SELFPAY ==
[2022-06-02] VITALS (8 sets, daily range): BP systolic 121–167; BP diastolic 68–92; PULSE 59–82; RESP 18; TEMP 36.6–37.4; O2SAT 94–97; BMI 27.6
--- NOTE | 2022-06-02 15:26 | CT_ITS ---
FINAL REPORT TECHNIQUE: Axial CT images of the face were obtained without contrast. Coronal reformatted images were also obtained. This study was performed with techniques to keep radiation doses as low as reasonably achievable, (ALARA). Individualized dose reduction techniques using automated exposure control or adjustment of mA and/or kV according to the patient''s size were employed. CLINICAL HISTORY: trauma, right facial trauma, patient fell going thru gate and cow knocked into his face FINDINGS: There are comminuted fractures involving the anterior and posterolateral crawford of the right maxillary sinus, medial right maxillary sinus, orbital floor, right lateral orbital wall, and right zygomatic arch consistent with zygomatical frontal fracture complex. There is a comminuted fracture of the anterior right skull just posterior to the orbit. There is a fracture of the nasal spine. In addition, there is a fracture of the anterior left maxilla. There is a small amount of pneumocephalus. There is air in the orbit. The globes are intact. There is right periorbital soft tissue swelling. There is presumed hemorrhage in the right maxillary sinus. Widespread sinus mucosal thickening is identified. IMPRESSION: Multiple comminuted facial fractures including zygomatical frontal fracture complex. Comminuted fracture of the anterior right skull with small amount of pneumocephalus. Fracture of the anterior left maxilla. Reviewed, Interpreted and Dictated by Juan Zamora III, MD Transcribed by Yuly Collins Authenticated and [facility]
--- NOTE | 2022-06-02 15:26 | CT_ITS ---
FINAL REPORT CLINICAL HISTORY: trauma, right facial trauma. L neck pain, patient fell going thru gate and cow knocked into his face FINDINGS: Axial CT images of the cervical spine were obtained without contrast. Sagittal and coronal reformatted images were also obtained. This study was performed with techniques to keep radiation doses as low as reasonably achievable (ALARA). Individualized dose reduction techniques using automated exposure control or adjustment of mA and/or kV according to the patient''s size were employed. There is no evidence of fracture or dislocation. There are moderate degenerative changes with multilevel neural foraminal narrowing. There are multiple right facial fractures. IMPRESSION: Degenerative changes without acute cervical spine fracture. Multiple right facial fractures. Reviewed, Interpreted and Dictated by Juan Zamora III, MD Transcribed by Yuly Collins Authenticated and [facility]
--- NOTE | 2022-06-02 15:26 | CT_ITS ---
FINAL REPORT CLINICAL HISTORY: trauma, patient fell going thru gate and cow knocked into his face FINDINGS: Axial images of the head were obtained without contrast. Coronal reformatted images were also obtained.This study was performed with techniques to keep radiation doses as low as reasonably achievable (ALARA). Individualized dose reduction techniques using automated exposure control or adjustment of mA and/or kV according to the patient''s size were employed. There is no evidence of intracranial hemorrhage or mass. The ventricular size is within normal limits. There is no evidence of shift of the midline structures. No abnormal extra axial fluid collection is identified. There are multiple facial fractures, greatest on the right. There is also a comminuted anterolateral right skull fracture with a small amount of pneumocephalus. IMPRESSION: No acute intracranial abnormality. Comminuted, right skull fracture with a small amount of pneumocephalus. Multiple facial fractures, greatest on the right. Reviewed, Interpreted and Dictated by Juan Zamora III, MD Transcribed by Yuly Collins Authenticated and [facility]
--- NOTE | 2022-06-02 15:34 | HMH.EDGENADL ---
Discharge Plan Disposition Patient Disposition: Xfer Short-Term Hosp Condition: Good Chief Complaint: Head Injury Prescriptions Prescriptions: No Action aspirin 81 mg tablet,delayed release (DR/EC) 81 mg PO DAILY Osteo Bi-Flex Triple Strength 750 mg-644 mg- 30 mg-1 mg tablet 1 tab PO BID atorvastatin [Lipitor] 40 mg tablet 40 mg PO DAILY Qty: 30 2RF gabapentin 400 mg capsule 400 mg PO TID Qty: 90 2RF multivitamin tablet 1 tab PO QAM calcium carbonate [Tums] 200 mg calcium (500 mg) tablet,chewable 200 mg PO BID PRN (Reason: supplement) (DME) OneTouch Ultra Test Strip See Rx Instructions .ROUTE .COMPLEX Qty: 100 2RF Dose Instruction: USE DIRECTED Rx Instructions: USE DIRECTED metformin 500 mg tablet See Rx Instructions .ROUTE .COMPLEX Rx Instructions: Take 1 tablet by mouth twice daily lisinopril 5 mg tablet See Rx Instructions .ROUTE .COMPLEX Rx Instructions: Take 1 tablet by mouth once daily ergocalciferol (vitamin D2) 1,250 mcg (50,000 unit) capsule See Rx Instructions .ROUTE .COMPLEX Rx Instructions: Take 1 capsule by mouth once a week cholecalciferol (vitamin D3) 25 mcg (1,000 unit) capsule 1,000 unit PO DAILY acetaminophen 500 mg Tablet 500 mg PO QID PRN (Reason: Pain) Referrals Follow up/Referrals: Frantz Aguilar MD [Primary Care Provider] - See instructions Clinical Impressions Clinical Impression: Multiple closed fractures of skull and face without intracranial injury Stand Alone Forms Stand Alone Forms: Transfer Record - ED Discharge ED Provider: Luigi Reyes General Adult HPI General Chief complaint: Head Injury Stated complaint: [id number]/13@1400Lac to Above R Eye Time Seen by Provider: 06/02/22 15:25 Mode of Arrival: Ambulatory Source of Information: Patient Limitations: No Limitations Description of Symptoms (Recalled from ER Triage Doc. by RN): c/o nose bleed and abrasion to right side of face with bruising noted around right eye. Pt states that he slipped and approx a 800 lb cow pushed against the gate hitting it into the pt face, states he head a crack. History of Present Illness HPI narrative: This is a 61-year-old male with history of hypertension, hyperlipidemia, diabetes, CAD, CKD presenting with head trauma. Patient [place] when he fell, hit the right side of his head on a gate. After hitting his face, a cow ran through a gate, which caused the gate to swing open and hit him on the other side of the head. No loss of consciousness, patient was brought immediately to the ER. Denies anticoagulant use. Currently having moderate pain in the right side of his face with associated nosebleed. Denies confusion, blurry vision, double vision, upper or lower extremity weakness,, or any other concerns at this time. Related Data Home Medications Medication Instructions Recorded Confirmed calcium carbonate 200 mg calcium 200 mg PO BID PRN supplement 08/08/17 04/14/22 (500 mg) chewable tablet (Tums) multivitamin 1 tab PO QAM Supplement 08/08/17 04/14/22 aspirin 81 mg tablet,delayed 81 mg PO DAILY heart healtyh 09/23/19 04/14/22 release glucosamine 750 yp-akexpjcvlby-mev 1 tab PO BID joints 10/12/21 04/14/22 no1 644 mg-C 30 mg-tanika 1 mg tablet (Osteo Bi-Flex Triple Strength) acetaminophen 500 mg tablet 500 mg PO QID PRN Pain 03/15/22 04/14/22 cholecalciferol (vitamin D3) 25 1,000 unit PO DAILY Supplement 03/15/22 04/14/22 mcg (1,000 unit) capsule ergocalciferol (vitamin D2) 1,250 See Rx Instructions .Route 03/15/22 04/14/22 mcg (50,000 unit) capsule .COMPLEX Supplement lisinopril 5 mg tablet See Rx Instructions .Route 03/15/22 04/14/22 .COMPLEX HTN metformin 500 mg tablet See Rx Instructions .Route 03/15/22 04/14/22 .COMPLEX diabets Previous Rx's Medication Instructions Recorded blood sugar diagnostic (GTxTouch #100 ea 06
--- NOTE | 2022-06-02 17:20 | PC.NURSE ---
calling [facility] for face surgery
--- NOTE | 2022-06-02 18:11 | PC.NURSE ---
updated pt that we were still waiting on md face surgeon to call, we would be back as to update of the game plan as soon as we get the call
--- NOTE | 2022-06-02 18:16 | PC.NURSE ---
Continued pain despite [place]. MD notified. VO for Dilaudid 0.5mg IV and Ancef 2gm IV. Orders placed. Meds given. Pt updated on plan of care. No further questions/complaints at this time.
--- NOTE | 2022-06-02 18:26 | PC.NURSE ---
pt accepted to by Dr. Hess.
--- NOTE | 2022-06-02 18:31 | PC.NURSE ---
Report given to JENISE Dickinson
--- NOTE | 2022-06-02 18:34 | PC.NURSE ---
rounded on pt, no needs at this time, family at bs
== END 2022-06-02 18:52 | disposition short-term general hospital (02) ==
PROVIDERS: Emergency Provider Emergency Medicine; PCP Emergency Medicine
DX: S02.81XA Fracture of other specified skull and facial bones, right side, initial encounter for closed fracture (principal); S02.40DA Maxillary fracture, left side, initial encounter for closed fracture; W01.198A Fall on same level from slipping, tripping and stumbling with subsequent striking against other object, initial encounter
CPT/HCPCS: 70450; 70486; 72125; 90715; 96365; 96372; 96374; 99285

== ENCOUNTER → 2022-06-14 10:00 | Outpatient (CLI) | payer MEDICAID, SELFPAY ==
[2022-06-14 14:24] LABS: Basophils % 0.2 % (0.1-2.0); Eosinophils # 0.3 K/mm3 (0.0-0.4); Eosinophils % 4.5 % (0.1-12.0); Hematocrit 45.6 % (42.0-52.0); Lymphocytes # 1.4 K/mm3 (0.7-4.5); Lymphocytes % 22.8 % (10-50); Mean Corpuscular HGB Conc 32.9 g/dL (31.8-35.4); Mean Corpuscular Hemoglobin 33.8 pg (27.0-31.2); Mean Corpuscular Volume 102.8 fl (80-94); Mean Platelet Volume 9.6 fl (7.4-10.4); Monocytes # 0.4 K/mm3 (0.1-1.0); Monocytes % 6.8 % (1.7-9.3); Neutrophils # 3.9 K/mm3 (1.8-7.8); Neutrophils % 65.6 % (37.0-80.0); Platelet Count 184 K/mm3 (142-424); Red Blood Count 4.44 M/mm3 (4.60-6.20); Red Cell Distribution Width 12.7 % (11.5-17.5); White Blood Count 5.9 K/mm3 (4.8-10.8)
[2022-06-14 14:53] LABS: Alanine Aminotransferase 30 U/L (12-78); Albumin Level 4.4 g/dl (3.5-5.0); Albumin/Globulin Ratio 1.9 (1.1-1.8); Alkaline Phosphatase 77 U/L (38-126); Anion Gap 12.4 mEq/L (5-15); Aspartate Amino Transferase 32 U/L (17-59); Bilirubin,Total 0.7 mg/dl (0.2-1.3); Blood Urea Nitrogen 12 mg/dl (9-20); Calcium 9.3 mg/dl (8.4-10.2); Carbon Dioxide 27 mmol/L (22.0-30.0); Chloride 104 mmol/L (98-107); Chol/HDL Ratio 3.2 (1-3.5); Cholesterol 133 mg/dl (140-200); Estimated Glomerular Filt Rate 115 ml/min (>60); GFR (African American) 139 ML/MIN (>60); Globulin 2.3 g/dL (1.3-3.2); Glucose 141 mg/dl (74-100); HDL Cholesterol 42 mg/dl (40-60); Potassium 4.4 mmoL/L (3.5-5.1); Sodium 139 mmol/L (136-145); Total Protein,Serum 6.7 g/dl (6.3-8.2); Triglycerides 85 mg/dl (30-150); VLDL Cholesterol 17 mg/dL (0-40)
[2022-06-14 15:05] LABS: Direct LDL Cholesterol 74.28 mg/dL (100-129)
[2022-06-14 16:28] LABS: Hemoglobin A1C 5.7 % (4.0-6.0)
== END ==
PROVIDERS: PCP Emergency Medicine; Visit Provider Emergency Medicine
DX: E78.5 Hyperlipidemia, unspecified (principal); G62.9 Polyneuropathy, unspecified; E11.9 Type 2 diabetes mellitus without complications; Z79.84 Long term (current) use of oral hypoglycemic drugs; Z79.899 Other long term (current) drug therapy
CPT/HCPCS: 80053; 80061; 83036; 84436; 84443; 85025

== ENCOUNTER → 2022-10-05 07:49 | Outpatient (CLI) | payer MEDICAID, SELFPAY ==
[2022-10-05 08:44] LABS: Alanine Aminotransferase 47 U/L (12-78); Albumin Level 3.9 g/dl (3.5-5.0); Alkaline Phosphatase 73 U/L (38-126); Aspartate Amino Transferase 46 U/L (17-59); Bilirubin,Direct 0.2 mg/dl (0.0-0.4); Bilirubin,Indirect 0.7 mg/dL (0.0-0.9); Bilirubin,Total 0.9 mg/dl (0.2-1.3); Bilirubin,Unconjugated 0.7 mg/dL (0.0-1.1); Chol/HDL Ratio 2.1 (1-3.5); Cholesterol 98 mg/dl (140-200); HDL Cholesterol 46 mg/dl (40-60); Total Protein,Serum 6.1 g/dl (6.3-8.2); Triglycerides 40 mg/dl (30-150); VLDL Cholesterol 8 mg/dL (0-40)
[2022-10-05 08:56] LABS: Direct LDL Cholesterol 43.57 mg/dL (100-129)
== END ==
PROVIDERS: PCP Emergency Medicine; Visit Provider Physician Assistant
DX: E11.9 Type 2 diabetes mellitus without complications (principal); I11.9 Hypertensive heart disease without heart failure; Z79.84 Long term (current) use of oral hypoglycemic drugs
CPT/HCPCS: 36415; 80061; 80076

== ENCOUNTER 2023-03-16 12:19 | Outpatient (CLI) | payer MEDICAID, SELFPAY ==
[2023-03-16 13:24] LABS: Amphetamine/Metha Screen,Urine Negative ng/ml (<1000)
[2023-03-16 13:25] LABS: Barbiturates Screen,Urine Negative ng/ml (<200); Benzodiazepines Screen,Urine Negative ng/ml (<200)
[2023-03-16 13:26] LABS: Cannabinoid Screen,Urine Negative ng/ml (<50)
[2023-03-16 13:27] LABS: Cocaine Screen,Urine Negative ng/ml (<300); Methadone Screen,Urine Negative ng/ml (<300)
[2023-03-16 13:28] LABS: Opiate Screen,Urine Negative ng/ml (<300)
[2023-03-16 13:29] LABS: Phencyclidine Screen,Urine Negative ng/ml (<25)
[2023-03-16 18:57] LABS: Basophils % 0.5 % (0.1-2.0); Eosinophils # 0.3 K/mm3 (0.0-0.4); Eosinophils % 4.8 % (0.1-12.0); Hematocrit 50.5 % (42.0-52.0); Lymphocytes # 1.4 K/mm3 (0.7-4.5); Lymphocytes % 19.8 % (10-50); Mean Corpuscular HGB Conc 33.6 g/dL (31.8-35.4); Mean Corpuscular Hemoglobin 34.8 pg (27.0-31.2); Mean Corpuscular Volume 103.6 fl (80-94); Mean Platelet Volume 9.5 fl (7.4-10.4); Monocytes # 0.5 K/mm3 (0.1-1.0); Monocytes % 6.5 % (1.7-9.3); Neutrophils # 4.7 K/mm3 (1.8-7.8); Neutrophils % 68.3 % (37.0-80.0); Platelet Count 154 K/mm3 (142-424); Red Blood Count 4.87 M/mm3 (4.60-6.20); Red Cell Distribution Width 12.5 % (11.5-17.5); White Blood Count 6.8 K/mm3 (4.8-10.8)
[2023-03-16 19:19] LABS: Chloride 105 mmol/L (98-107); Sodium 136 mmol/L (136-145)
[2023-03-16 19:20] LABS: Potassium 4.4 mmoL/L (3.5-5.1)
[2023-03-16 19:22] LABS: Alanine Aminotransferase 48 U/L (12-78); Albumin Level 4.5 g/dl (3.5-5.0); Albumin/Globulin Ratio 1.7 (1.1-1.8); Alkaline Phosphatase 84 U/L (38-126); Anion Gap 13.4 mEq/L (5-15); Aspartate Amino Transferase 42 U/L (17-59); Bilirubin,Total 1.4 mg/dl (0.2-1.3); Blood Urea Nitrogen 15 mg/dl (9-20); Carbon Dioxide 22 mmol/L (22.0-30.0); Estimated Glomerular Filt Rate 137 ml/min (>60); GFR (African American) 165 ML/MIN (>60); Globulin 2.7 g/dL (1.3-3.2); Total Protein,Serum 7.2 g/dl (6.3-8.2)
[2023-03-16 19:23] LABS: Calcium 9.6 mg/dl (8.4-10.2); Glucose 149 mg/dl (74-100)
[2023-03-16 19:26] LABS: 25-OH Vitamin D, Total 24.8 ng/mL (30-100)
[2023-03-16 19:57] LABS: Thyroid Stimulating Hormone 0.91 uIU/mL (0.465-4.68)
[2023-03-16 20:24] LABS: Hemoglobin A1C 6.6 % (4.0-6.0)
== END 2023-03-16 23:59 ==
LOC: LAB.DROPOF 12:20
PROVIDERS: PCP Internal Medicine; Visit Provider Internal Medicine
DX: Z79.899 Other long term (current) drug therapy (principal); E11.9 Type 2 diabetes mellitus without complications; E55.9 Vitamin D deficiency, unspecified; E78.5 Hyperlipidemia, unspecified; Z68.21 Body mass index [BMI] 21.0-21.9, adult; Z79.84 Long term (current) use of oral hypoglycemic drugs
CPT/HCPCS: 80053; 80307; 82306; 83036; 84443; 85025

== ENCOUNTER 2023-03-23 09:07 | Outpatient (CLI) | payer MEDICAID, SELFPAY ==
--- NOTE | 2023-03-23 09:08 | US_ITS ---
FINAL REPORT CLINICAL HISTORY: abdominal dissection FINDINGS: Gallstones are present in the gallbladder, measuring up to 13 mm in size. No gallbladder wall thickening or ductal dilatation is seen to suggest an acute gallbladder process. No biliary ductal dilatation is appreciated, the common bile duct measuring 4 mm in diameter. No fluid collections are seen. The liver is normal in appearance. Limited portions of the right kidney are unremarkable other than a small 1.2 cm right renal cyst. The abdominal aorta is unremarkable in appearance without evidence of aneurysm. The aorta measures 1.6 cm in greatest diameter. IMPRESSION: Numerous gallstones present up to 13 mm in size, without acute cholecystitis. No evidence of abdominal aortic aneurysm. Reviewed, Interpreted and Dictated by Marian Wright MD Transcribed by Essence Kim Authenticated and [facility]
== END 2023-03-23 23:59 ==
PROVIDERS: PCP Internal Medicine; Visit Provider Internal Medicine
DX: I71.02 Dissection of abdominal aorta (principal)
CPT/HCPCS: 76700

== ENCOUNTER 2023-04-13 12:26 | Outpatient (CLI) | payer MEDICAID, SELFPAY ==
[2023-04-13 14:03] LABS: Prostate Specific Ag Screen 0.5 ng/ml (0.0-4.0)
== END 2023-04-13 23:59 ==
LOC: LAB.DROPOF 12:26
PROVIDERS: PCP Internal Medicine; Visit Provider Internal Medicine
DX: M19.90 Unspecified osteoarthritis, unspecified site (principal); M47.817 Spondylosis without myelopathy or radiculopathy, lumbosacral region; E66.3 Overweight; Z68.29 Body mass index [BMI] 29.0-29.9, adult; Z12.5 Encounter for screening for malignant neoplasm of prostate; Z79.899 Other long term (current) drug therapy
CPT/HCPCS: 82043; 82306; G0103

== ENCOUNTER 2023-10-02 10:30 | Outpatient (CLI) | payer MEDICAID, SELFPAY ==
[2023-10-02 20:29] LABS: Hemoglobin A1C 6.6 % (4.0-6.0)
[2023-10-02 20:30] LABS: Alanine Aminotransferase 46 U/L (12-78); Albumin Level 4.3 g/dl (3.5-5.0); Albumin/Globulin Ratio 1.5 (1.1-1.8); Alkaline Phosphatase 66 U/L (38-126); Anion Gap 12.4 mEq/L (5-15); Aspartate Amino Transferase 36 U/L (17-59); Bilirubin,Total 1.2 mg/dl (0.2-1.3); Blood Urea Nitrogen 13 mg/dl (9-20); Calcium 9.9 mg/dl (8.4-10.2); Carbon Dioxide 23 mmol/L (22.0-30.0); Chloride 106 mmol/L (98-107); Estimated Glomerular Filt Rate 137 ml/min (>60); GFR (African American) 165 ML/MIN (>60); Globulin 2.8 g/dL (1.3-3.2); Glucose 138 mg/dl (74-100); Potassium 4.4 mmoL/L (3.5-5.1); Sodium 137 mmol/L (136-145); Total Protein,Serum 7.1 g/dl (6.3-8.2)
== END 2023-10-02 23:59 | disposition home or self-care (01) ==
LOC: LAB.DROPOF 10-03 14:50
PROVIDERS: PCP Internal Medicine; Visit Provider Internal Medicine
DX: E11.42 Type 2 diabetes mellitus with diabetic polyneuropathy (principal); Z79.84 Long term (current) use of oral hypoglycemic drugs
CPT/HCPCS: 80053; 83036

== ENCOUNTER 2023-10-18 11:44 | Outpatient (CLI) | payer MEDICAID, SELFPAY ==
[2023-10-18 12:29] LABS: Chol/HDL Ratio 2.8 (1-3.5); Cholesterol 127 mg/dl (140-200); HDL Cholesterol 45 mg/dl (40-60); Triglycerides 87 mg/dl (30-150); VLDL Cholesterol 17 mg/dL (0-40)
[2023-10-18 12:40] LABS: Direct LDL Cholesterol 59.65 mg/dL (100-129)
== END 2023-10-18 23:59 | disposition home or self-care (01) ==
LOC: LAB 11:45
PROVIDERS: PCP Internal Medicine; Visit Provider Nurse Practitioner Family
DX: E78.2 Mixed hyperlipidemia (principal); I10 Essential (primary) hypertension; E11.9 Type 2 diabetes mellitus without complications; I25.10 Atherosclerotic heart disease of native coronary artery without angina pectoris; Z79.84 Long term (current) use of oral hypoglycemic drugs
CPT/HCPCS: 36415; 80061

== ENCOUNTER 2023-11-07 06:11 | Day surgery (SDC) | payer MEDICAID, SELFPAY ==
[2023-11-06 12:18] VITALS: BMI 28.3
[2023-11-07] MEDS: LACTATED RINGERS 1000ML 1,000 ML 25 ML IV (06:30)
[2023-11-07 06:35] VITALS: BP 126/82; PULSE 52; RESP 18; TEMP 36.1; O2SAT 97
[2023-11-07 06:44] LABS: POC Glucose,Bedside 122 (70-110)
--- NOTE | 2023-11-07 07:06 | P.PNANES_ITS ---
[facility] Disclaimer: The information contained in this section may have been updated after the patient was seen, as this information can be updated by other users. Medical History Family history of aortic dissection Crushing injury of face Sleep apnea Sinus headache Arthritis Ulcerative colitis History of gastroesophageal reflux (GERD) Diabetes mellitus, type 2 History of cataract Allergies Hypertension Hyperlipidemia Sinus bradycardia HLD (hyperlipidemia) CAD (coronary artery disease) Surgical History History of facial surgery No significant past surgical history Family History Other Diabetes Heart disease Social History Smoking Status: Never smoker alcohol intake: never substance use type: denies use current occupational status: employed Travel in the last 8 weeks: None household members: none housing: house caffeine: Yes [facility] Anesthesia Checklist Patient Identification Patient Identification: Arm Band and Verbal (Name & ) Structural Data Admitted From: Home Planned Operative Procedure/s: Colonoscopy Consent for Planned Operative Procedure(s) Verified: Yes Verified Documents: Surgical Consent and History and Physical NPO Status Verified Time NPO: 00:00 Additional verifications Anesthesia Reactions: No Airway Assessment Mallampati Score:: Class III C-Spine Mobility Assessed: Yes TMJ Mobility Assessed: Yes Dentition: Poor Dentition (Multiple missing. ) Neurological Assessment Level of Consciousness: Awake Hx Seizures: No Numbness or tingling in extremities: Yes Anesthesia Plan Anesthesia Risk discussed: Yes Anesthesia Plan: Verified ASA Class: III Anesthesia Type: MAC
[2023-11-07 07:09] VITALS: O2SAT 94
[2023-11-07 07:48] VITALS: BP 101/62; PULSE 63; RESP 16; TEMP 36.4; O2SAT 94
--- NOTE | 2023-11-07 07:48 | HMH.SCOPE ---
Procedure: Date: 11/07/23 Patient Date of :: 1960 Procedure Performed:: Colonoscopy with polypectomy by means other than snare Indications:: Screening Note: Colonoscopy in February 2022 complicated by poor bowel preparation, spasticity, and tortuosity. Performing Provider:: Teddy Brock MD Referring Provider:: . Sedation:: Monitored anesthesia care Procedure:: After informed consent was obtained the patient was taken to the endoscopy suite. Sedation ensued after the patient was transferred to the left lateral decubitus position. Pulse, blood pressure, and oxygen saturation were monitored throughout the procedure. Digital rectal exam revealed no significant abnormality. The colonoscope was placed in position. The entire colon was evaluated. The colonoscope was carefully removed and the patient was transferred to recovery in stable condition. Please see findings and specimens below for detail. Findings:: Bowel preparation relatively fair Moderate spasticity/lack of relaxation Moderate tortuosity Lobulated sessile polyp of the cecum (opposite from ileocecal valve) Specimens:: Cecal polyp (cold biopsy forceps Recommendations:: Timing of repeat colonoscopy is pending pathology will likely be around 3-5 years. Complications:: No immediate Estimated blood obtained (mL): 1 Colonoscopy Component Colonoscopy Component Was a colonoscopy performed during today's procedure?: Yes Recommended follow up colonoscopy of at least 10 years?: No If no, follow up colonoscopy recommended in ___ years?: (See above) Reason for not recommending >/= 10 yr follow-up interval?: (See above)
[2023-11-07 07:58] VITALS: BP 97/59; PULSE 63; RESP 16; O2SAT 95
[2023-11-07 08:08] VITALS: BP 100/67; PULSE 59; RESP 18; O2SAT 94
[2023-11-07 08:18] VITALS: BP 103/67; PULSE 58; RESP 16; O2SAT 96
== END 2023-11-07 08:30 | disposition home or self-care (01) ==
PROVIDERS: PCP Internal Medicine; Visit Provider Surgery
PROC: 0DJD8ZZ Inspection of Lower Intestinal Tract, Via Natural or Artificial Opening Endoscopic (ICD-10-PCS; CPT 45380; principal; 2023-11-07 07:30)
DX: Z12.11 Encounter for screening for malignant neoplasm of colon (principal); D12.0 Benign neoplasm of cecum
CPT/HCPCS: 45380; 82962; J2704; J7120

== ENCOUNTER 2023-11-14 09:46 | Outpatient (CLI) | payer MEDICAID, SELFPAY ==
--- NOTE | 2023-11-14 09:46 | CT_ITS ---
FINAL REPORT TECHNIQUE: Thin section axial CT with contrast with multiplanar reconstruction This study was performed with techniques to keep radiation doses as low as reasonably achievable, (ALARA). Individualized dose reduction techniques using automated exposure control or adjustment of mA and/or kV according to the patient's size were employed. CLINICAL HISTORY: abnl ecg/family hx of aortic dissection COMPARISON: 10/25/2019 FINDINGS: Pulmonary vessels enhance in normal fashion without evidence of embolism. Thoracic aorta shows no dissection or aneurysm. No significant calcified plaques are identified. The great vessel origins are unremarkable. No pulmonary mass or infiltrate is present. There is no significant pleural effusion. There is no significant pericardial effusion. No mediastinal or hilar adenopathy is present. Note is made of a gallstone present in the gallbladder. IMPRESSION: No evidence of thoracic aortic aneurysm or dissection is seen. No suspicious pulmonary lesions are seen. A gallstone is present in the gallbladder. Reviewed, Interpreted and Dictated by Marian Wright MD Transcribed by Essence Kim Authenticated and [facility]
[2023-11-14 10:13] LABS: Blood Urea Nitrogen 10 mg/dl (9-20); Estimated Glomerular Filt Rate 114 ml/min (>60); GFR (African American) 138 ML/MIN (>60)
[2023-11-14] MEDS: 0.9 % SODIUM CHLORIDE 50 ML VIAL IV (10:28)
[2023-11-14] MEDS: SODIUM CHLORIDE 0.9% 10ML SYR (RAD ONLY) 10 ML IV (10:28)
[2023-11-14] MEDS: IOPAMIDOL-370 (76%);100ML BOTTLE 100 ML IV (10:29)
== END 2023-11-14 23:59 | disposition home or self-care (01) ==
LOC: RAD 09:46
PROVIDERS: PCP Internal Medicine; Visit Provider Nurse Practitioner Family
DX: I10 Essential (primary) hypertension (principal); I25.10 Atherosclerotic heart disease of native coronary artery without angina pectoris; Z82.49 Family history of ischemic heart disease and other diseases of the circulatory system
CPT/HCPCS: 36415; 71275; 82565; 84520; Q9967

== ENCOUNTER 2024-04-01 11:19 | Outpatient (CLI) | payer MEDICAID, SELFPAY ==
[2024-04-01 19:41] LABS: Creatinine,Urine Random 165 mg/dL (Not Estab.)
== END 2024-04-01 23:59 | disposition home or self-care (01) ==
LOC: LAB.DROPOF 04-02 09:10
PROVIDERS: PCP Internal Medicine; Visit Provider Internal Medicine
DX: Z00.00 Encounter for general adult medical examination without abnormal findings (principal); E55.9 Vitamin D deficiency, unspecified; E11.9 Type 2 diabetes mellitus without complications; Z79.84 Long term (current) use of oral hypoglycemic drugs
CPT/HCPCS: 82043; 82570

== ENCOUNTER 2024-04-16 10:48 | Outpatient (CLI) | payer MEDICAID, SELFPAY ==
[2024-04-16 11:25] LABS: Basophils % 0.6 % (0.1-2.0); Eosinophils # 0.3 K/mm3 (0.0-0.4); Eosinophils % 4.4 % (0.1-12.0); Hematocrit 44.9 % (42.0-52.0); Hemoglobin 15.5 g/dL (14.1-18.0); Lymphocytes # 1.5 K/mm3 (0.7-4.5); Lymphocytes % 22.3 % (10-50); Mean Corpuscular HGB Conc 34.5 g/dL (31.8-35.4); Mean Corpuscular Hemoglobin 34.2 pg (27.0-31.2); Mean Corpuscular Volume 99.1 fl (80-94); Mean Platelet Volume 10.4 fl (7.4-10.4); Monocytes # 0.6 K/mm3 (0.1-1.0); Monocytes % 8.4 % (1.7-9.3); Neutrophils # 4.3 K/mm3 (1.8-7.8); Neutrophils % 63.7 % (37.0-80.0); Platelet Count 154 K/mm3 (142-424); Red Blood Count 4.53 M/mm3 (4.60-6.20); Red Cell Distribution Width 11.9 % (11.5-17.5); White Blood Count 6.8 K/mm3 (4.8-10.8)
[2024-04-16 12:17] LABS: Alanine Aminotransferase 41 U/L (12-78); Albumin Level 4.7 g/dl (3.5-5.0); Alkaline Phosphatase 60 U/L (38-126); Anion Gap 9.6 mEq/L (5-15); Aspartate Amino Transferase 38 U/L (17-59); Bilirubin,Direct 0.3 mg/dl (0.0-0.4); Bilirubin,Indirect 0.9 mg/dL (0.0-0.9); Bilirubin,Total 1.2 mg/dl (0.2-1.3); Blood Urea Nitrogen 13 mg/dl (9-20); Calcium 9.8 mg/dl (8.4-10.2); Carbon Dioxide 26 mmol/L (22.0-30.0); Chloride 106 mmol/L (98-107); Cholesterol 141 mg/dl (140-200); Estimated Glomerular Filt Rate 114 ml/min (>60); GFR (African American) 138 ML/MIN (>60); Glucose 140 mg/dl (74-100); HDL Cholesterol 47 mg/dl (40-60); Magnesium 1.5 mg/dl (1.6-2.3); Potassium 4.6 mmoL/L (3.5-5.1); Sodium 137 mmol/L (136-145); Total Protein,Serum 6.9 g/dl (6.3-8.2); Triglycerides 88 mg/dl (30-150); VLDL Cholesterol 18 mg/dL (0-40)
[2024-04-16 12:28] LABS: Direct LDL Cholesterol 67.93 mg/dL (100-129)
[2024-04-16 12:35] LABS: Free T4 (Free Thyroxine) 0.95 ng/dl (0.78-2.19)
[2024-04-16 12:50] LABS: Thyroid Stimulating Hormone 0.89 uIU/mL (0.465-4.68)
== END 2024-04-16 23:59 | disposition home or self-care (01) ==
LOC: LAB 10:49
PROVIDERS: PCP Internal Medicine; Visit Provider Nurse Practitioner Family
DX: I25.10 Atherosclerotic heart disease of native coronary artery without angina pectoris (principal); I10 Essential (primary) hypertension; E11.9 Type 2 diabetes mellitus without complications; E78.2 Mixed hyperlipidemia
CPT/HCPCS: 36415; 80048; 80061; 80076; 83735; 84439; 84443; 85025

== ENCOUNTER 2024-07-31 08:50 | Outpatient (CLI) | payer MEDICAID, SELFPAY ==
--- OUTSIDE RECORDS SUMMARY | 2024-07-31 08:53 | XMS_ITS | Clinical Summary ---
Author Organization [facility] Address [address] [id number] Care Team Providers Care New Accounts Clerk Name Role Phone Pcp, No Primary Care Provider Unavailabl e Allergies No known active allergies Medications atorvastatin (Lipitor) 40 MG tablet Take 40 mg by mouth 1 (one) time each day. 3 Active ergocalciferol 1.25 MG (95899 UT) capsule Take by mouth every 7 (seven) days. 2 Active gabapentin (Neurontin) 400 MG capsule 3 (three) times a day. 3 Active lisinopril 5 MG tablet Take by mouth 1 (one) time each day. 3 Active metFORMIN (Glucophage) 500 MG tablet Take by mouth 2 (two) times a day. 3 Active Aspirin 81 MG capsule Take 81 mg by mouth 1 (one) time each day. Active multivitamin (Theragran) tablet Take 1 tablet by mouth 1 (one) time each day. Active Misc Natural Products (OSTEO BI-FLEX ADV TRIPLE ST PO) Take by mouth 2 (two) times a day. Active oxymetazoline (Afrin) 0.05 % nasal spray Administer 2 sprays into each nostril every 12 (twelve) hours if needed for congestion for up to 2 days. Do not use for more than 3 days. 30 mL 3 Active Active Problems Problem Noted Date Diagnosed Date Open fracture of zygomatic arch with routine hea ling 06/10/2022 Overview (06/10/2022): Added automatically from request for surgery [id number] Social History Tobacco Use Types Packs/Day Years Used Date Smoking Tobacco: Never Smokeless Tobacco: Never Tobacco Cessation:Counseling Given: Not Answered Alcohol Use Standard Drinks/Week Comments Never 0 (1 standard drink = 0.6 oz pur e alcohol) Sex and Gender Information Value Date Recorded Sex Assigned at Not on file Legal Sex Male 5:21 PM EDT Gender Identity Not on file Sexual Orientation Not on file Last Filed Vital Signs Vital Sign Reading Time Taken Comments Blood Pressure 155/69 06/16/2022 3:10 PM EDT Pulse 59 06/16/2022 3:15 PM EDT Temperature 36.9 C (98.4 F) 06/16/2022 3:15 PM EDT Respiratory Rate 14 06/16/2022 3:15 PM EDT Oxygen Saturation 95% 06/16/2022 3:15 PM EDT Inhaled Oxygen Concentration - - Weight 78.5 kg (173 lb) 06/16/2022 8:26 AM EDT Height 172.7 cm (5' 8 ) 06/16/2022 8:26 AM EDT Body Mass Index 26.3 06/16/2022 8:26 AM EDT Plan of Treatment Health Maintenance Due Date Last Done Comments Dental Oral Exam 1960 Dental Prophylaxis 1960 Dental X-Ray: Bitewings 1960 Dental X-Ray: Full Mouth 1960 [facility]-Depression Screening 1960 [facility]-HIV Screening 1960 [facility]-Hepatitis C Screening 1960 [facility]-/Child/Adol SDOH Screenings 1960 [facility]- SDOH Screenings 1978 [facility]-Adult SDOH Screenings 1978 CT Colonography 2005 Colonoscopy 2005 FIT-DNA 2005 FIT 2005 FOBT 2005 Sigmoidoscopy 2005 [facility]-Colorectal Cancer Screening 2005 [facility]-Pneumococcal Vaccine: 50+ Years (1 of 1 - PCV) 2010 [facility]-Zoster Vaccines (1 of 2) 2010 [id number] Vaccine ( season) 2023 12/23/2020, 05/21/2020, 04/23/2020 [facility]-Influenza Vaccine (Season Ended) 2024 01/18/2022, 12/28/2020, 12/06/2019, Additional history exists [facility]-DTaP,Tdap,and Td Vaccines (4 - Td or Tdap) 06/02/2032 06/02/2022, 04/19/2014, 05/15/2013 [facility]-RSV Vaccine: 60+ Years or (1 - 1-dose 75+ series) 12/11/2035 [facility]-Obesity Intervention Completed 06/24/2022 HPV Vaccines Aged Out No longer eligi ble based on patient's age to complete this topic [facility]-HIB Vaccines Aged Out No longer e ligible based on patient's age to complete this topic [facility]-Hepatitis A Vaccines Aged Out No longer eligible based on patient's age to complete this topic [facility]-IPV Vaccines Aged Out No longer e ligible based on patient's age to complete this topic [facility]-Rotavirus Vaccines Aged Out No lo nger eligible based on patient's age to complete this topic Medical Devices Implanted Type Area Corporate Legal Secretary Device Identifier Shelf Expiration Date Model / Serial / Lot Screw Matrix Self-Drill 6mm - [id number] Implanted:Qty: 6 on 06/16/2022 by Cruz Henriquez DMD at [facility] Right: Face [id number] .01 / / Plate Matric Orbital Rim Plate 12 Holes 0.7mm - [id number] Implanted:Qty: 1 on 06/16/2022 by Cruz Henriquez DMD at [facility] Right: Face [employer].[id number] / / Plate Matric Oblique L-Pl 3x4 Holes-Rt/0.7mm - [id number] Implanted:Qty: 1 on 06/16/2022 by Cruz Henriquez DMD at [facility] Right: Face [employer].[id number] / / Screw Matrix Self-Drill 6mm - [id number] Implanted:Qty: 8 on 06/16/2022 by Cruz Henriquez DMD at [facility] Right: Face [employer].[id number] 226 .01 / / Insurance [employer] Care Teams New Accounts Clerk Relationship Specialty Start [place] [address] PCP - General Family Medicine 06/02/22
--- NOTE | 2024-07-31 09:00 | US_ITS ---
FINAL REPORT TECHNIQUE: Real-time grayscale and color ultrasound of the thyroid was performed. CLINICAL HISTORY: Follow-up thyroid nodule COMPARISON: 01/06/2021 FINDINGS: The thyroid gland measures 48 x 17 x 25 mm on the right and 46 x 21 x 21 mm on the left. The isthmus measures 4 mm. The parenchyma is unremarkable . Nodules: 5 mm predominantly anechoic structure in the right side of the isthmus is a TR 3 nodule. Left 6 mm isoechoic solid TR 3 nodule. Ill-defined hypoechoic solid right nodule does not have the appearance of typical ovoid configuration and appears more angular measuring 6 mm in greatest dimension consistent with a TR 4 nodule. IMPRESSION: Thyroid nodules as above. No required follow-up per TI-RADS criteria. Reviewed, Interpreted and Dictated by Toney Valdez MD Transcribed by Jerri Gallardo Authenticated and [facility]
== END 2024-07-31 23:59 | disposition home or self-care (01) ==
LOC: RAD 08:51
PROVIDERS: PCP Family Medicine; Visit Provider Family Medicine
DX: E04.2 Nontoxic multinodular goiter (principal)
CPT/HCPCS: 76536

== ENCOUNTER 2024-08-05 09:10 | Outpatient (CLI) | payer MEDICAID, SELFPAY ==
--- OUTSIDE RECORDS SUMMARY | 2024-08-05 09:13 | XMS_ITS | Clinical Summary ---
Author Organization [facility] Address [address] [id number] Care Team Providers Care Water/Wastewater Engineer Name Role Phone Pcp, No Primary Care Provider Unavailabl e Allergies No known active allergies Medications atorvastatin (Lipitor) 40 MG tablet Take 40 mg by mouth 1 (one) time each day. 3 Active ergocalciferol 1.25 MG (42023 UT) capsule Take by mouth every 7 [...] (06/10/2022): Added automatically from request for surgery [id number] Social History Tobacco Use Types Packs/Day Years [...] 2010 [facility]-Zoster Vaccines (1 of 2) 2010 [id number] Vaccine ( season) 2023 12/23/2020, 05/21/2020, 04/23/2020 [...] this topic Medical Devices Implanted Type Area Neonatal Surgeon Device Identifier Shelf Expiration Date Model / Serial / Lot Screw Matrix Self-Drill 6mm - [id number] Implanted:Qty: 6 on 06/16/2022 by Cruz Henriquez DMD at [facility] Right: Face [id number] .226 .01 / / Plate Matric Orbital Rim Plate 12 Holes 0.7mm - [id number] Implanted:Qty: 1 on 06/16/2022 by Cruz Henriquez DMD at [facility] Right: Face [id number] 503.373 / / Plate Matric Oblique L-Pl 3x4 Holes-Rt/0.7mm - [id number] Implanted:Qty: 1 on 06/16/2022 by Cruz Henriquez DMD at [facility] Right: Face [id number] 503.356 / / Screw Matrix Self-Drill 6mm - [id number] Implanted:Qty: 8 on 06/16/2022 by Cruz Henriquez DMD at [facility] Right: Face [id number] 226 .01 / / Insurance [employer] Care Teams Water/Wastewater Engineer Relationship Specialty Start Date [place] [address] PCP - General Family Medicine 06/02/22
--- NOTE | 2024-08-05 09:14 | XR_ITS ---
FINAL REPORT CLINICAL HISTORY: Right knee pain COMPARISON: 08/06/2021 FINDINGS: RIGHT KNEE Three views demonstrate no acute fracture or dislocation. There is moderate medial compartment joint space narrowing. There is osteophyte formation at the medial joint margin on the right. On the lateral view, there is now an ossific or calcific density inferior to the patella in the anterior joint space. This is new since the previous exam. The exact location is unclear on the other views. This focus measures about 1.7 cm in greatest dimension and is presumably related to degenerative or hypertrophic change. No acute soft tissue abnormality is seen. IMPRESSION: New ossific or calcific density inferior to the patella presumably related to degenerative or hypertrophic change. CT or MRI could better define. Reviewed, Interpreted and Dictated by Tnoey Valdez MD Transcribed by Michela Stephenson Authenticated and [facility]
--- NOTE | 2024-08-05 09:14 | XR_ITS ---
FINAL REPORT CLINICAL HISTORY: Left knee pain COMPARISON: 08/06/2021 FINDINGS: LEFT KNEE Three views demonstrate no acute fracture or dislocation. There is moderate narrowing of the medial compartment joint space. There are moderate osteophytes along the undersurface of the patella. No acute soft tissue abnormality is seen. IMPRESSION: Degenerative changes without acute bony abnormality. Reviewed, Interpreted and Dictated by Toney Valdez MD Transcribed by Michela Stephenson Authenticated and [facility]
== END 2024-08-05 23:59 | disposition home or self-care (01) ==
LOC: RAD 09:11
PROVIDERS: PCP Family Medicine; Visit Provider Orthopaedic Surgery
DX: M17.0 Bilateral primary osteoarthritis of knee (principal); M25.762 Osteophyte, left knee; M25.761 Osteophyte, right knee; M85.861 Other specified disorders of bone density and structure, right lower leg
CPT/HCPCS: 73562

== ENCOUNTER 2024-11-01 10:08 | Outpatient (CLI) | payer MEDICAID, SELFPAY ==
[2024-11-01 15:58] LABS: Hemoglobin A1C 6.6 % (4.0-6.0)
[2024-11-01 16:27] LABS: Alanine Aminotransferase 31 U/L (12-78); Albumin Level 4.7 g/dl (3.5-5.0); Albumin/Globulin Ratio 1.8 (1.1-1.8); Alkaline Phosphatase 69 U/L (38-126); Anion Gap 15.6 mEq/L (5-15); Aspartate Amino Transferase 33 U/L (17-59); Bilirubin,Total 1.6 mg/dl (0.2-1.3); Blood Urea Nitrogen 12 mg/dl (9-20); Calcium 9.8 mg/dl (8.4-10.2); Carbon Dioxide 23 mmol/L (22.0-30.0); Chloride 104 mmol/L (98-107); Cholesterol 136 mg/dl (140-200); Creatinine,Serum 0.60 mg/dl (0.66-1.25); Estimated Glomerular Filt Rate 136 ml/min (>60); GFR (African American) 165 ML/MIN (>60); Globulin 2.6 g/dL (1.3-3.2); Glucose 148 mg/dl (74-100); HDL Cholesterol 38 mg/dl (40-60); Potassium 4.6 mmoL/L (3.5-5.1); Sodium 138 mmol/L (136-145); Total Protein,Serum 7.3 g/dl (6.3-8.2); Triglycerides 110 mg/dl (30-150)
--- OUTSIDE RECORDS SUMMARY | 2024-11-04 10:14 | XMS_ITS | Clinical Summary ---
Author Organization [facility] Address [address] [id number] Care Team Providers Care Skein Spooler Name Role Phone Pcp, No Primary Care Provider Unavailabl e Allergies No known active allergies Medications atorvastatin (Lipitor) 40 MG tablet Take 40 mg by mouth 1 (one) time each day. 3 Active ergocalciferol 1.25 MG (81241 UT) capsule Take by mouth every 7 [...] (06/10/2022): Added automatically from request for surgery [id number] Social History Tobacco Use Types Packs/Day Years [...] [facility]-HIV Screening 1960 [facility]-Hepatitis C Screening 1960 [facility]-Infant/Child/Adol SDOH Screenings 1960 [facility]- SDOH Screenings 1978 [facility]-Adult SDOH Screenings 1978 CT Colonography 2005 Colonoscopy 2005 FIT-DNA 2005 FIT 2005 FOBT 2005 Sigmoidoscopy 2005 [facility]-Colorectal Cancer Screening 2005 [facility]-Pneumococcal Vaccine: 50+ Years (1 of 1 - PCV) 2010 [facility]-Zoster Vaccines (1 of 2) 2010 [id number] Vaccine ( season) 2024 12/23/2020, 05/21/2020, 04/23/2020 [facility]-Influenza Vaccine (#1) 10/21/202401/18, 12/28/2020, 12/06/2019, Additional history exists [facility]-DTaP,Tdap,and Td [...] this topic Medical Devices Implanted Type 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 Device Identifier Shelf Expiration Date Model / Serial / Lot Screw Matrix Self-Drill 6mm - [id number] Implanted:Qty: 6 on 06/16/2022 by Cruz Henriquez DMD at [facility] Right: Face Flowboard-[id number] .01 / / Plate Matric Orbital Rim Plate 12 Holes 0.7mm - [id number] Implanted:Qty: 1 on 06/16/2022 by Cruz Henriquez DMD at [facility] Right: Face Flowboard-[id number] 503.373 / / Plate Matric Oblique L-Pl 3x4 Holes-Rt/0.7mm - [id number] Implanted:Qty: 1 on 06/16/2022 by Cruz Henriqeuz DMD at [facility] Right: Face Flowboard-[id number] / / Screw Matrix Self-Drill 6mm - [id number] Implanted:Qty: 8 on 06/16/2022 by Cruz Henriquez DMD at [facility] Right: Face Flowboard-[id number] 226 .01 / / Insurance [place] [employer] Care Teams Skein Spooler Relationship Specialty Start [place] [address] PCP - General Family Medicine 06/02/22
--- OUTSIDE RECORDS SUMMARY | 2024-11-04 10:14 | XMS_ITS | Clinical Summary ---
Author Organization [facility] Address [address] [place] [address] Care Team Providers Care Typer Name Role Phone Unavailable Primary Care Provider Unavailabl e Social History Tobacco Use Types Packs/Day Years Used Date Smoking Tobacco: Never Assessed Abuse Screen Answer Date Recorded Unsafe at Home or Work/School Not on file Feels Threatened by Someone? Not on file 12/2022 Does Anyone Keep You from Co ntacting Others or Doint Things Outside the Home? Not on file 11/30/2022 Physical Sign of Abuse Present Not on file 1 Housing Stability Answer Date Recorded Current Living Arrangements Not on file 11/20 Potentially Unsafe Housing Conditions Not on silvestre e 11/30/2022 Family and Community Support Answer Prem e Recorded Help with Day-to-Day Activities Not on file 11/30/2022 Lonely or Isolated Not on file 11/30/2022 Employment Answer Date Recorded Do you want help finding or keeping work or a louis b? Not on file 11/30/2022 Disabilities Answer Date Recorded Concentrating, Remembering, or Making Decisions Difficulty Not on file 11/30/2022 Doing Errands Independently Difficulty Not on fi le 11/30/2022 Education Answer Date Recorded Help with school or training? Not on file Preferred Language Not on file 11/30/2022 Sex and Gender Information Value Date Recorded Sex Assigned at Not on file Legal Sex Male 12:16 PM EDT Gender Identity Not on file Sexual Orientation Not on file Last Filed Vital Signs Vital Sign Reading Time Taken Comments Blood Pressure 109/67 08/14/2013 2:52 PM EDT Pulse - - Temperature - - Respiratory Rate - - Oxygen Saturation - - Inhaled Oxygen Concentration - - Weight 85.7 kg (189 lb) 08/14/2013 2:52 PM EDT Height 172.7 cm (5' 8 ) 08/14/2013 2:52 PM EDT Body Mass Index 28.74 08/14/2013 2:52 PM EDT Plan of Treatment Health Maintenance Due Date Last Done Comments ANNUAL PHYSICAL 1960 HEPATITIS C SCREENING 1960 TDAP/TD VACCINES (1 - Tdap) 12/11/1979 COLOGUARD 2005 COLON CANCER SCREENING 5 YEAR SIGMOIDOSCOPY 2005 COLONOSCOPY [address] CANCER SCREENING 2005 CT COLONOGRAPHY 2005 FECAL OCCULT BLOOD TEST 2005 FIT Testing (1 year) 2005 Pneumococcal Vaccine 50+ (1 of 1 - PCV) 2010 ZOSTER VACCINE (1 of 2) 2010 COVID-19 Vaccine (1 - 2023- season) 2024 INFLUENZA VACCINE 11/20/2024
== END 2024-11-01 23:59 ==
LOC: LAB.DROPOF 11-04 10:09
PROVIDERS: PCP Family Medicine; Visit Provider Family Medicine
DX: E11.9 Type 2 diabetes mellitus without complications (principal); Z12.5 Encounter for screening for malignant neoplasm of prostate
CPT/HCPCS: 80053; 80061; 83036; G0103

== ENCOUNTER 2025-01-31 09:41 | Outpatient (CLI) | payer MEDICAID, SELFPAY | END 2025-01-31 23:59 | disposition home or self-care (01) | LOC: LAB.DROPOF 02-03 09:42 | PROVIDERS: PCP Family Medicine; Visit Provider Family Medicine | DX: E11.9 Type 2 diabetes mellitus without complications (principal) | CPT/HCPCS: 82043; 82570 ==